=== PATIENT | male | born 1945 | race Caucasian/White ===

== ENCOUNTER 2025-01-04 14:36 | Inpatient (IN) | payer MEDICARE, BC ==
--- NOTE | 2025-01-04 15:29 | ED ---
Weakness HPI - General Chief complaint: Weakness Stated complaint: Weakness Time Seen by Provider: 01/04/25 14:49 Source: patient, EMS, RN notes reviewed Mode of arrival: EMS Limitations: no limitations - History of Present Illness Initial comments: This is a 79-year-old male with a history of recurrent kidney stones presenting to the emergency department via EMS for complaints of generalized weakness. Patient states over the past few weeks he has been feeling very fatigued decrease in appetite and experiencing cycles of diarrhea and constipation. He states that he has also been feeling mildly short of breath with abdominal distention. He denies barrett chest pain, fevers, chills, hematochezia, dysuria, hematuria, increased urinary frequency or urgency. He states that he will feel fatigued easily with activity. Patient has not followed with a primary doctor in many years. Lives at home by himself. - Related Data Allergies Allergy/AdvReac Type Severity Reaction Status Date / Time No Known Allergies Allergy Verified 01/04/25 14:50 Review of Systems ROS Statement: Those systems with pertinent positive or pertinent negative responses have been documented in the HPI. ROS Other: All systems not noted in ROS Statement are negative. Past Medical History Past Medical History: COPD, Renal Disease History of Any Multi-Drug Resistant Organisms: None Reported Past Surgical History: Back Surgery Past Psychological History: Depression Smoking Status: Former smoker Past Alcohol Use History: None Reported Past Drug Use History: None Reported General Exam Limitations: no limitations Respiratory exam: Present: normal lung sounds bilaterally. Absent: wheezes, rales, decreased breath sounds Cardiovascular Exam: Present: regular rate, normal rhythm, normal heart sounds. Absent: systolic murmur, diastolic murmur, rubs, gallop, clicks GI/Abdominal exam: Present: distended, normal bowel sounds. Absent: tenderness, guarding, rebound, rigid Extremities exam: Present: normal inspection, full ROM, normal capillary refill. Absent: tenderness, pedal edema, joint swelling, calf tenderness Back exam: Present: normal inspection Skin exam: Present: warm, dry, intact, normal color. Absent: rash Course Vital Signs 01/04/25 01/04/25 01/04/25 14:40 15:04 15:05 Temperature 97.8 F Pulse Rate 77 Pulse Rate [ 82 Mortar Carrier ] Respiratory 18 18 Rate Blood Pressure 88/56 O2 Sat by Pulse 93 L Oximetry Medical Decision Making - Medical Decision Making Was pt. sent in by a medical professional or institution (, LISA, HEMATOLOGY TECHNICIAN, urgent care, hospital, or [facility]...) When possible be specific @ -No Did you speak to anyone other than the patient for history (EMS, parent, family, police, friend...)? What history was obtained from this source @ -No Did you review nursing and triage notes (agree or disagree)? Why? @ -I reviewed and agree with nursing and triage notes Were old charts reviewed (outside hosp., previous admission, EMS record, old EKG, old radiological studies, urgent care reports/EKG's, [facility] records)? Report findings @ -No old charts were reviewed Differential Diagnosis (chest pain, altered mental status, abdominal pain women, abdominal pain men, vaginal bleeding, weakness, fever, dyspnea, syncope, headache, dizziness, GI bleed, back pain, seizure, CVA, palpatations, mental health, musculoskeletal)? @ Differential Weakness: Hypoglycemia, shock, sepsis, hyponatremia, anemia, infection, VT, ETOH, adverse medicine reaction, overdose, stroke, this is not meant to be an all-inclusive list. EKG interpreted by me (3pts min.). @ -Completed at 1539 sinus rhythm with a noted sinus arrhythmia, ventricular rate 73, W[place] interval 147, QRS 129, QT 428, QTc 453. X-rays interpreted by me (1pt min.). @ -Chest x-ray with no acute cardiopulmonary process or disease. CT interpreted by me (1pt min.). @ -CT angiography of the chest with IV contrast reveals no acute pulmonary embolism with ascites and suspected hepatic mass. U/S interpreted by me (1pt. min.). @ -None done What testing was considered but not performed or refused? (CT, X-rays, U/S, labs)? Why? @ -None What meds were considered but not given or refused? Why? @ -None Did you discuss the management of the patient with other professionals (professionals i.e. LISA Swift, HEMATOLOGY TECHNICIAN, lab, RT, psych nurse, social worker psychiatric, almond blancher, teacher, cra officer, classification case manager)? Give summary @ -Spoke with Dr. Deluca who agreed to admit the patient Was smoking cessation discussed for >3mins.? @ -No Was critical care preformed (if so, how long)? @ -No Were there social determinants of health that impacted care today? How? (Homelessness, low income, unemployed, alcoholism, drug addiction, transportation, low edu. Level, literacy, decrease access to med. care, snf, rehab)? @ -No Was there de-escalation of care discussed even if they declined (Discuss DNR or withdrawal of care, Hospice)? DNR status @ -No What co-morbidities impacted this encounter? (DM, HTN, Smoking, COPD, CAD, Cancer, CVA, ARF, Chemo, Hep., AIDS, mental health diagnosis, sleep apnea, morbid obesity)? @ -None Was patient admitted / discharged? Hospital course, mention meds given and route, prescriptions, significant lab abnormalities, going to OR and other pertinent info. @ -Admitted. 79-year-old male presenting via EMS for generalized weakness. Patient is hypotensive on arrival with a blood pressure of 88/56 and is requiring supplemental oxygen is that he does normally not wear at home. He is provided with fluids from EMS and is placed on 2 L nasal cannula. Patient has clear lung sounds bilaterally. There is noted abdominal distention examination with no tenderness and equal bowel sounds heard through all quadrants. Patient's chest x-ray is unremarkable. Laboratory testing reveals no acute process. Urinalysis reveals no signs of infection, viral testing is negative. With concern for hypoxemia patient is evaluated via CT imaging of the chest. CT reveals no evidence of PE however there is concern for ascites with suspected hepatic mass. Patient is continued on supplemental oxygen and will be admitted to internal medicine with further evaluation by pulmonology. Ultrasound ordered of the liver. Case discussed with my attending Dr. Patton. Patient will be admitted to Dr. Ortez. Undiagnosed new problem with uncertain prognosis? @ -No Drug Therapy requiring intensive monitoring for toxicity (Heparin, Nitro, Insulin, Cardizem)? @ -No Were any procedures done? @ -No Diagnosis/symptom? @ -Generalized weakness, hypoxemia, abdominal ascites, liver mass Acute, or Chronic, or Acute on Chronic? @ -Acute Uncomplicated (without systemic symptoms) or Complicated (systemic symptoms)? @ -Complicated Side effects of treatment? @ -No Exacerbation, Progression, or Severe Exacerbation? @ -No Poses a threat to life or bodily function? How? (Chest pain, USA, VT, pneumonia, PE, COPD, DKA, ARF, appy, cholecystitis, CVA, Diverticulitis, Homicidal, Suicidal, threat to staff... and all critical care pts) @ -No - Lab Data Result diagrams: 01/04/25 15:51 01/04/25 15:51 Lab Results 01/04/25 01/04/25 01/04/25 Range/Units 15:51 15:51 15:51 WBC 8.32 (4.50-10.00) 10*3/uL RBC 4.35 L (4.40-5.60) 10*6/uL Hgb 12.7 L (13.0-17.0) g/dL Hct 37.9 L (39.6-50.0) % MCV 87.1 (80.0-97.0) fL MCH 29.2 (27.0-32.0) pg MCHC 33.5 (32.0-37.0) g/dL Plt Count 270 (140-440) 10*3/uL MPV 8.4 L (9.5-12.2) fL Immature Gran % (Auto) 0.5 % Neutrophils % 85.6 % Lymphocytes % 6.0 % Monocytes % 7.7 % Eosinophils % 0.0 % Basophils % 0.2 % Immature Gran # 0.04 (0.00-0.04) 10*3/uL Neutrophils # 7.12 (1.80-7.70) 10*3/uL Lymphocytes # 0.50 L (0.90-5.00) 10*3/uL Monocytes # 0.64 (0.20-1.00) 10*3/uL Eosinophils # 0.00 L (0.04-0.35) 10*3/uL Basophils # 0.02 (0.00-0.10) 10*3/uL PT 12.7 H (10.0-12.5) sec INR 1.2 H (<1.2) APTT 25.8 (22.0-30.0) sec Sodium 138 (137-145) mmol/L Potassium 3.4 L (3.5-5.1) mmol/L Chloride 107 (98-107) mmol/L Carbon Dioxide 22 (22-30) mmol/L Anion Gap 9 mmol/L BUN 26 H (9-20) mg/dL Creatinine 0.70 (0.66-1.25) mg/dL Est GFR (CKD-EPI)AfAm >90 (>60 ml/min/1.73 sqM) Est GFR (CKD-EPI)NonAf >90 (>60 ml/min/1.73 sqM) Glucose 110 H (74-99) mg/dL Calcium 9.5 (8.4-10.2) mg/dL Magnesium 2.2 (1.6-2.3) mg/dL Total Bilirubin 1.5 H (0.2-1.3) mg/dL AST 23 (17-59) U/L ALT 17 (4-49) U/L Alkaline Phosphatase 153 H (38-126) U/L Troponin I (0.000-0.034) ng/mL NT-Pro-B Natriuret Pep 1750 pg/mL Total Protein 6.5 (6.3-8.2) g/dL Albumin 3.1 L (3.5-5.0) g/dL Lipase 38 (23-300) U/L Urine Color Urine Appearance (Clear) Urine pH (5.0-8.0) Ur Specific [place] (1.001-1.035) Urine Protein (Negative) Urine Glucose (UA) (Negative) Urine Ketones (Negative) Urine Blood (Negative) Urine Nitrite (Negative) Urine Bilirubin (Negative) Urine Urobilinogen (<2.0) mg/dL Ur Leukocyte Esterase (Negative) Urine RBC (0-5) /hpf Urine WBC (0-5) /hpf Ur Squamous Epith Cells (0-4) /hpf Hyaline Casts (0-2) /lpf Urine Mucus (None) /hpf Influenza Type A (PCR) (Not Detectd) Influenza Type B (PCR) (Not Detectd) RSV (PCR) (Not Detectd) SARS-CoV-2 (PCR) (Not Detectd) 01/04/25 01/04/25 01/04/25 Range/Units 15:51 15:51 16:30 WBC (4.50-10.00) 10*3/uL RBC (4.40-5.60) 10*6/uL Hgb (13.0-17.0) g/dL Hct (39.6-50.0) % MCV (80.0-97.0) fL MCH (27.0-32.0) pg MCHC (32.0-37.0) g/dL Plt Count (140-440) 10*3/uL MPV (9.5-12.2) fL Immature Gran % (Auto) % Neutrophils % % Lymphocytes % % Monocytes % % Eosinophils % % Basophils % % Immature Gran # (0.00-0.04) 10*3/uL Neutrophils # (1.80-7.70) 10*3/uL Lymphocytes # (0.90-5.00) 10*3/uL Monocytes # (0.20-1.00) 10*3/uL Eosinophils # (0.04-0.35) 10*3/uL Basophils # (0.00-0.10) 10*3/uL PT (10.0-12.5) sec INR (<1.2) APTT (22.0-30.0) sec Sodium (137-145) mmol/L Potassium (3.5-5.1) mmol/L Chloride (98-107) mmol/L Carbon Dioxide (22-30) mmol/L Anion Gap mmol/L BUN (9-20) mg/dL Creatinine (0.66-1.25) mg/dL Est GFR (CKD-EPI)AfAm (>60 ml/min/1.73 sqM) Est GFR (CKD-EPI)NonAf (>60 ml/min/1.73 sqM) Glucose (74-99) mg/dL Calcium (8.4-10.2) mg/dL Magnesium (1.6-2.3) mg/dL Total Bilirubin (0.2-1.3) mg/dL AST (17-59) U/L ALT (4-49) U/L Alkaline Phosphatase (38-126) U/L Troponin I <0.012 (0.000-0.034) ng/mL NT-Pro-B Natriuret Pep pg/mL Total Protein (6.3-8.2) g/dL Albumin (3.5-5.0) g/dL Lipase (23-300) U/L Urine Color Yellow Urine Appearance Clear (Clear) Urine pH 6.0 (5.0-8.0) Ur Specific [place] 1.031 (1.001-1.035) Urine Protein 1+ H (Negative) Urine Glucose (UA) Negative (Negative) Urine Ketones Negative (Negative) Urine Blood Negative (Negative) Urine Nitrite Negative (Negative) Urine Bilirubin 1+ H (Negative) Urine Urobilinogen 4.0 (<2.0) mg/dL Ur Leukocyte Esterase Negative (Negative) Urine RBC 1 (0-5) /hpf Urine WBC 2 (0-5) /hpf Ur Squamous Epith Cells <1 (0-4) /hpf Hyaline Casts 1 (0-2) /lpf Urine Mucus Many H (None) /hpf Influenza Type A (PCR) Not Detected (Not Detectd) Influenza Type B (PCR) Not Detected (Not Detectd) RSV (PCR) Not Detected (Not Detectd) SARS-CoV-2 (PCR) Not Detected (Not Detectd) Disposition Clinical Impression: Generalized weakness, Hypoxemia, Ascites, Liver lesion Disposition: ADMITTED IP TO THIS [facility] Condition: Stable Referrals: None,Stated [Primary Care Provider] - 1-2 days Decision to Admit Reason: Admit from EC Decision Date: 01/04/25 Decision Time: 18:01
[2025-01-04 16:01] LABS: Basophils # (A) 0.02 10*3/uL (0.00-0.10); Basophils % (A) 0.2 %; Eosinophils # (A) 0.00 10*3/uL (0.04-0.35); Eosinophils % (A) 0.0 %; HCT 37.9 % (39.6-50.0); HGB 12.7 g/dL (13.0-17.0); Lymphocytes # (A) 0.50 10*3/uL (0.90-5.00); Lymphocytes % (A) 6.0 %; MCH 29.2 pg (27.0-32.0); MCHC 33.5 g/dL (32.0-37.0); MCV 87.1 fL (80.0-97.0); Monocytes # (A) 0.64 10*3/uL (0.20-1.00); Monocytes % (A) 7.7 %; Neutrophils # (A) 7.12 10*3/uL (1.80-7.70); Neutrophils % (A) 85.6 %; Platelet Count 270 10*3/uL (140-440); RBC 4.35 10*6/uL (4.40-5.60); RDW 15.8 % (11.5-14.5); WBC 8.32 10*3/uL (4.50-10.00)
[2025-01-04 16:13] LABS: INR 1.2 (<1.2); Partial Thromboplastin Time 25.8 sec (22.0-30.0); Prothrombin Time 12.7 sec (10.0-12.5)
[2025-01-04 16:16] LABS: ALT 17 U/L (4-49); AST 23 U/L (17-59); African American GFR (CKD) >90 (>60 ml/min/1.73 sqM); Albumin 3.1 g/dL (3.5-5.0); Alkaline Phosphatase 153 U/L (38-126); Anion Gap 9 mmol/L; Blood Urea Nitrogen 26 mg/dL (9-20); Calcium 9.5 mg/dL (8.4-10.2); Carbon Dioxide 22 mmol/L (22-30); Chloride 107 mmol/L (98-107); Glucose 110 mg/dL (74-99); Lipase 38 U/L (23-300); Magnesium 2.2 mg/dL (1.6-2.3); Non-African American GFR(CKD) >90 (>60 ml/min/1.73 sqM); Potassium 3.4 mmol/L (3.5-5.1); Sodium 138 mmol/L (137-145); Total Protein 6.5 g/dL (6.3-8.2)
[2025-01-04 16:25] LABS: NT-Pro-B-Type Natriuretic Pept 1750 pg/mL
--- NOTE | 2025-01-04 16:27 | XR ---
EXAMINATION TYPE: XR chest 2V DATE OF EXAM: 01/04/2025 4:06 PM COMPARISON: None. CLINICAL INDICATION: Male, 79 years old with history of AURORA, weakness, TECHNIQUE: XR chest 2V view(s) obtained. FINDINGS: The heart size is normal. The pulmonary vasculature is normal. The lungs are clear. IMPRESSION: 1. No acute pulmonary process. [facility], Workstation: [facility], 01/04/2025 4:25 PM
[2025-01-04 16:37] LABS: RSV Not Detected (Not Detectd)
[2025-01-04 16:42] LABS: Bilirubin,Urine 1+ (Negative); Blood,Urine Negative (Negative); Color,Urine Yellow; Glucose,Urine (UA) Negative (Negative); Hyaline Casts,Urine 1 /lpf (0-2); Ketones,Urine Negative (Negative); Leukocyte Esterase,Urine Negative (Negative); Mucus,Urine Many /hpf; Nitrite,Urine Negative (Negative); PH, Urine 6.0 (5.0-8.0); Protein,Urine 1+ (Negative); RBC,Urine 1 /hpf (0-5); Specific Gravity,Urine 1.031 (1.001-1.035); Squamous Epithelial Cell,Urine <1 /hpf (0-4); Urobilinogen,Urine 4.0 mg/dL (<2.0); WBC,Urine 2 /hpf (0-5)
--- NOTE | 2025-01-04 17:42 | CT ---
EXAMINATION TYPE: CT chest angio for PE DATE OF EXAM: 01/04/2025 5:23 PM COMPARISON: No comparisons at this location. CLINICAL INDICATION: Male, 79 years old with history of hypoxemia, AURORA, difficulty breathing, TECHNIQUE: CT of the chest is performed on a spiral scan at 2 mm thick sections. Study is performed with intravenous contrast timed for evaluation for pulmonary embolism. This will limit additional po rtions of the evaluation. 10mm MIP images reconstructed by the technologist are reviewed on the comp uter in the coronal and sagittal planes. Contrast used:100 mL of Isovue 370 with IV Contrast, (none if empty) Oral contrast used: (none if empty) CT DLP: 287.8 mGycm, Automated exposure control for dose reduction was used. FINDINGS: No persistent filling defects are evident to suggest an acute pulmonary embolism. No mediastinal or hilar adenopathy enlarged by CT criteria is evident. The ascending aorta diameter at the level of the main pulmonary artery is 4.2 cm. The main pulmonary artery diameter at the bifurcation is 3.2 cm. Lung windows are clear. No significant coronary artery calcifications. Limited CT sections were through the upper abdomen. Ascites is present. There is an ill-defined hypo density within the posterior right lobe liver suspicious for underlying mass or anterior process. There is reflux into the inferior vena cava and portal system. IMPRESSION: 1. No acute pulmonary embolism. 2. No acute pulmonary process. 3. Ascending thoracic aortic aneurysm of 4.2 cm. 4. Ascites. 5. Suspected hepatic mass. Additional workup recommended. [facility], Workstation: [facility], 01/04/2025 5:39 PM
[2025-01-04] MEDS ORDERED: NALOXONE 0.4 MG/ML 1 ML VIAL IV PRN (17:59)
--- NOTE | 2025-01-04 21:07 | P.HPIM ---
History of Present Illness H&P Date: 01/04/25 Chief Complaint: weakness and SOB Patient is a 79-year-old male with a PMH of - Recurrent kidney stones - COPD -not on oxygen at home Comes into the ED today for fatigue and weakness with shortness of breath with daily activity for the past 2 weeks. Patient stated that since 12/23/2024 he noticed fatigue, and weakness when performing daily activities. He sometimes has shortness of breath that is worse with activity, or when he lays down. Denied improvement with positional change. Also stated that he sometimes has a distended abdomen, and with that he has shortness of breath as well especially when he lays down. Patient denied any past medical history other than the recurrent kidney stones. Patient denied having COPD. He stated that he quit smoking in 1994, and never smoked cigarettes after. Patient does not have a PCP. He only sees his field staff manager for the history of recurrent kidney stones. Patient endorsed taking only chlorthalidone and potassium chloride tablets. Denied chest pain, headache, fever chills, muscle weakness, numbness or ti ngling, abdominal pain, change in vision. Endorsed having shortness of breath, bilateral leg edema, distended abdomen. On his chest CTA, ascites was noted and there are was a suspected hepatic mass. Imaging: Chest x-ray 01/04 No acute pulmonary process Chest CTA 01/04 1. No acute pulmonary embolism 2. No acute pulmonary process 3. Ascending thoracic aortic aneurysm of 4.2 cm 4. Ascites 5. Suspected hepatic mass.additional workup recommended Liver ultrasound 01/04 Labs: WBC 8.32, Hgb 12.7, HCT 38, plt count 270 NA 138, K3.4, BUN 26, CR 0.7 AST, ALT are WNL, ALP 153 Vitals: T97.9F, HR 80, RR 20, BP 112/58, O2 sat 94% on RA ED documentation reviewed and case discussed with ED provider. [] Review of systems: Pertinent positives and negatives as discussed in HPI, a complete review of systems was performed and all other systems are negative. Physical examination: Vital signs reviewed General: non toxic, mild distress, appears at stated age, normal weight Derm: no unusual rashes/lesions, warm Eyes: EOMI, anicteric sclera, pupils equal round reactive to light ENT: Nose and ears atraumatic Neck: supple Mouth: no lip lesion, mucus membranes moist Cardiovascular: S1S2 reg, no murmur, positive dorsalis pedis pulse bilateral, bilateral leg edema +2 L, +1 R Lungs: shallow breathing with increased effort, no rhonchi, no rales, no accessory muscle use Abdominal: Mildly distended abdomen, nontender to palpation, no guarding Ext: muscle strength 5 out of 5 in all 4 extremities grossly, no gross muscle atrophy Neuro: no gross focal neuro deficits Psych: Alert, oriented to person, place, and time Assessment/Plan: #. Dyspnea rule out CHF - Dyspnea on exertion and laying down - Worsening bilateral leg edema - Denied following up with PCP for years - Troponin negative, proBNP 1750 - Ordered an echo for evaluation of wall function abnormality - Start Lasix 40 mg - check allergy first vs Bumax 1 mg - duoneb inhaler as needed - monitor O2 saturation #. Hx of COPD - unlikely an exacerbation - not on any medications - follow up outpatient for PFT #. Suspect for hepatic mass - Chest CTA positive for ascites, do not suspect for liver mass US revealed a liver mass with mass effect on the hepatic vein - Patient endorsed abdominal distention - Follow-up on liver ultrasound - AST and ALT are WNL, ALP 153 check AFP, hepatitis C ab, B S ab and Ag oncology consult no GI service available #. History of recurrent kidney stones - Pt follows up with his field staff manager for this medical issue - Takes chlorthalidone 12.5 mg daily at home - Hold chlorthalidone DVT prophylaxis: Lovenox 40 mg The patient is admitted with an anticipated less than 2 midnight stay for evaluation of weakness and shortness of breath CODE STATUS: full code Discussed with: Dr. Mclaughlin Anticipated discharge place: Home Darline Amado MD PGY-1 IM Dictation was produced using [employer] dictation software. please excuse any grammatical, word or spelling errors. I have seen and evaluated the patient today. I Discussed the case with the resident and agree with the resident's findings I edited the assessment and plan as necessary as documented in the resident's note. Past Medical History Past Medical History: COPD, Renal Disease History of Any Multi-Drug Resistant Organisms: None Reported Past Surgical History: Back Surgery Past Psychological History: Depression Smoking Status: Former smoker Past Alcohol Use History: None Reported Past Drug Use History: None Reported Medications and Allergies Home Medications Medication Instructions Recorded Confirmed Type Chlorthalidone [Hygroton] 12.5 mg PO DAILY 01/04/25 01/04/25 History Glucosa Sellers 2Kcl/Chondroitin Sellers 1 cap PO DAILY 01/04/25 01/04/25 History [Glucosamine-Chondroitin Cap] Potassium Chloride ER [K-Dur 20] 20 meq PO DAILY 01/04/25 01/04/25 History Vit C/E/Zn/Coppr/Lutein/Zeaxan 1 cap PO DAILY 01/04/25 01/04/25 History [Preservision Areds 2 Softgel] Allergies Allergy/AdvReac Type Severity Reaction Status Date / Time No Known Allergies Allergy Verified 01/04/25 18:21 Physical Exam Vitals: Vital Signs Temp Pulse Pulse Resp BP Pulse Ox 01/04/25 19:31 93 L 01/04/25 19:13 97.9 F 80 20 112/58 95 01/04/25 15:05 18 01/04/25 15:04 82 01/04/25 14:40 97.8 F 77 18 88/56 93 L Intake and Output 01/04/25 01/04/25 01/04/25 06:59 14:59 22:59 Other: Weight 83.915 kg Results CBC & Chem 7: 01/04/25 15:51 01/04/25 15:51 Labs: Abnormal Lab Results - Last 24 Hours (Table) 01/04/25 01/04/25 01/04/25 Range/Units 15:51 15:51 15:51 RBC 4.35 L (4.40-5.60) 10*6/uL Hgb 12.7 L (13.0-17.0) g/dL Hct 37.9 L (39.6-50.0) % MPV 8.4 L (9.5-12.2) fL Lymphocytes # 0.50 L (0.90-5.00) 10*3/uL Eosinophils # 0.00 L (0.04-0.35) 10*3/uL PT 12.7 H (10.0-12.5) sec INR 1.2 H (<1.2) Potassium 3.4 L (3.5-5.1) mmol/L BUN 26 H (9-20) mg/dL Glucose 110 H (74-99) mg/dL Total Bilirubin 1.5 H (0.2-1.3) mg/dL Alkaline Phosphatase 153 H (38-126) U/L Albumin 3.1 L (3.5-5.0) g/dL Urine Protein (Negative) Urine Bilirubin (Negative) Urine Mucus (None) /hpf 01/04/25 Range/Units 16:30 RBC (4.40-5.60) 10*6/uL Hgb (13.0-17.0) g/dL Hct (39.6-50.0) % MPV (9.5-12.2) fL Lymphocytes # (0.90-5.00) 10*3/uL Eosinophils # (0.04-0.35) 10*3/uL PT (10.0-12.5) sec INR (<1.2) Potassium (3.5-5.1) mmol/L BUN (9-20) mg/dL Glucose (74-99) mg/dL Total Bilirubin (0.2-1.3) mg/dL Alkaline Phosphatase (38-126) U/L Albumin (3.5-5.0) g/dL Urine Protein 1+ H (Negative) Urine Bilirubin 1+ H (Negative) Urine Mucus Many H (None) /hpf
--- NOTE | 2025-01-04 21:47 | US ---
EXAMINATION TYPE: US liver DATE OF EXAM: 01/04/2025 COMPARISON: CT chest today CLINICAL INDICATION: Male, 79 years old with history of hepatic mass, ascites; hepatic mass seen on C T, ascites TECHNIQUE: Grayscale and color Doppler imaging of the right upper quadrant was performed. FINDINGS: EXAM MEASUREMENTS: Liver Length: 17.2 cm Gallbladder Wall: 0.3 cm CBD: 0.6 cm Right Kidney: 12.3 x 5.5 x 6.0 cm SOLUTIONS OPERATOR NOTES:slightly limited Pancreas: Obscured by bowel gas Liver: multiple mass-like areas seen within the liver. The largest is complex in the posterior right lobe measuring 9.7 x 10.8 x 11.7cm with vascularity seen within and appears to be pushing into the r ight hepatic vein Gallbladder: wnl Evidence for sonographic Langston's sign: no CBD: upper limits of normal Right Kidney: slightly large in size. there is a 1.6 x 1.6 x 2.2cm anechoic area seen within mid to inferior pole ascites seen within the abdomen IMPRESSION: 1. Clinical consideration for metastasis within the liver. 2. Renal cysts. 3. Ascites [facility], Workstation: [facility], 01/04/2025 9:45 PM
[2025-01-04] MEDS ORDERED: IPRATROPIUM-ALBUTEROL 3 ML NEB INHALATION PRN (22:35)
--- NOTE | 2025-01-05 02:01 | P.CNPUL ---
History of Present Illness Consult date: 01/05/25 Requesting physician: Digna Young Reason for consult: hypoxemia Chief complaint: Abdominal fullness, exertional dyspnea History of present illness: Patient is a 79-year-old male with past medical history significant for recurrent kidney stones, former tobacco smoker, previous heavy alcohol use, and is hard of hearing. He does not currently follow with primary care provider. Presented to the emergency department yesterday afternoon complaining of increased abdominal fullness and exertional dyspnea. Workup in the emergency department clued and a chest CT angiogram which did not show any acute pulmonary embolism or acute pulmonary process. Ascending thoracic aortic aneurysm measuring 4.2 cm. Abdominal ascites. Suspected hepatic mass within the posterior right lobe liver. Follow-u abdominal ultrasound showing multiple masslike areas seen within the liver. Largest is complex in the posterior right lobe measuring 9.7 x 10.8 x 11.7 cm with vascularity seen within it appears to be pushing into the right hepatic vein. Patient currently being seen on observation unit. He is on room air. States he came to the emergency department because his abdomen has been more distended and taut over the last 6 months. This is associated exertional dyspnea over the same timeframe. He has been losing an uncertain amount of weight. Early statiety. Denies nausea, vomiting, hematemesis. Intermittent periods of diarrhea and constipation without melena or hematochezia. No abdominal pain. Former heavy alcohol use. Denies history of hepatitis. Denies history of liver cirrhosis. Denies family history of liver cancer. Previously 1 pack/day smoker, however, quit in 02 12. Denies history of COPD. Denies inhaler use. Denies infectious-like symptoms. Denies sick contacts. Denies cough. Denies fevers or chills. Viral 4 Plex negative for influenza A/B, RSV, COVID. Denies chest pain. He has noted some lower extremity edema bilaterally. Review of Systems REVIEW OF SYSTEMS: CONSTITUTIONAL: Admits uncertain amount of weight loss, unintentional EYES: Denies change in vision. EARS, NOSE, MOUTH, THROAT: Denies headaches, denies sore throat. CARDIOVASCULAR: Denies chest pain, palpitations or syncopal episodes. Admits lower extremity edema bilaterally RESPIRATORY: See HPI GASTROINTESTINAL: See HPI GENITOURINARY: Denies hematuria, denies infections. MUSKULOSKELETAL: Denies pain, denies swelling. INTEGUMENTARY: Denies rash, denies eczema. NEUROLOGICAL: Denies recent memory loss, no recent seizure activity. PSYCHIATRIC: Denies anxiety, denies depression. HEMATOLOGIC/LYMPHATIC: Denies anemia, denies enlarged lymph node Past Medical History Past Medical History: COPD, Renal Disease History of Any Multi-Drug Resistant Organisms: None Reported Past Surgical History: Back Surgery Past Anesthesia/Blood Transfusion Reactions: No Reported Reaction Past Psychological History: Depression Smoking Status: Former smoker Past Alcohol Use History: None Reported Past Drug Use History: None Reported Medications and Allergies Home Medications Medication Instructions Recorded Confirmed Type Chlorthalidone [Hygroton] 12.5 mg PO DAILY 01/04/25 01/04/25 History Glucosa Sellers 2Kcl/Chondroitin Sellers 1 cap PO DAILY 01/04/25 01/04/25 History [Glucosamine-Chondroitin Cap] Potassium Chloride ER [K-Dur 20] 20 meq PO DAILY 01/04/25 01/04/25 History Vit C/E/Zn/Coppr/Lutein/Zeaxan 1 cap PO DAILY 01/04/25 01/04/25 History [Preservision Areds 2 Softgel] Allergies Allergy/AdvReac Type Severity Reaction Status Date / Time No Known Allergies Allergy Verified 01/04/25 18:21 Physical Exam Vitals: Vital Signs Temp Pulse Pulse Resp BP BP Pulse Ox 01/04/25 21:18 98.2 F 113 H 18 95/63 94 L 01/04/25 19:50 98.0 F 90 99/61 93 L 01/04/25 19:31 93 L 01/04/25 19:13 97.9 F 80 20 112/58 95 01/04/25 15:05 18 01/04/25 15:04 82 01/04/25 14:40 97.8 F 77 18 88/56 93 L Intake and Output 01/04/25 01/04/25 01/05/25 14:59 22:59 06:59 Other: Weight 83.915 kg 83.915 kg GENERAL EXAM: Alert, 79-year-old male, extremely hard of hearing, comfortable in no apparent distress. HEAD: Normocephalic and atraumatic EYES: Normal reaction of pupils, equal size. NOSE: Clear with pink turbinates. THROAT: No erythema or exudates. NECK: No masses, no JVD. CHEST: No chest wall deformity. LUNGS: Equal air entry with no crackles, wheeze, rhonchi or dullness. On room air. No conversational dyspnea or accessory muscle use.. CVS: S1 and S2 normal with no audible murmur, regular rhythm. No extra heart asilaja nds ABDOMEN abdominal distention, active bowel sounds, no guarding or rigidity, with hepatomegaly. SPINE: No scoliosis or deformity SKIN: No rashes CENTRAL NERVOUS SYSTEM: No focal deficits, tone is normal in all 4 extremities. EXTREMITIES: There 1-2+ bilateral lower extremity edema. No clubbing, or cyanosis. Peripheral pulses are intact. Results - Laboratory Findings CBC and BMP: 01/04/25 15:51 01/04/25 15:51 PT/INR, D-dimer PT 12.7 sec (10.0-12.5) H 01/04/25 15:51 INR 1.2 (<1.2) H 01/04/25 15:51 Abnormal lab findings: Abnormal Labs 01/04/25 01/04/25 01/04/25 15:51 15:51 15:51 RBC 4.35 L Hgb 12.7 L Hct 37.9 L MPV 8.4 L Lymphocytes # 0.50 L Eosinophils # 0.00 L PT 12.7 H INR 1.2 H Potassium 3.4 L BUN 26 H Glucose 110 H Total Bilirubin 1.5 H Alkaline Phosphatase 153 H Albumin 3.1 L Urine Protein Urine Bilirubin Urine Mucus 01/04/25 16:30 RBC Hgb Hct MPV Lymphocytes # Eosinophils # PT INR Potassium BUN Glucose Total Bilirubin Alkaline Phosphatase Albumin Urine Protein 1+ H Urine Bilirubin 1+ H Urine Mucus Many H - Diagnostic Findings Chest x-ray: image reviewed CT scan - chest: image reviewed Assessment and Plan Assessment: Hepatic masses, largest is complex in the posterior right lobe measuring 9.7 x 10.8 x 11.7 cm, concerning for malignancy Abdominal ascites Abdominal distention, secondary to above Exertional dyspnea, suspect secondary to above Bilateral lower extremity edema Thoracic aorta measuring 4.2 cm Former tobacco smoker, quit in 1995, with approximately 30-40 pack years history History of heavy alcohol use Hard of hearing History of recurrent nephrolithiasis Plan: Patient's medications, labs, imaging reviewed Chest CT angiogram did not show any acute pulmonary embolism or acute pulmonary process. Ascending thoracic aortic aneurysm measuring 4.2 cm. Abdominal ascites. Suspected hepatic mass within the posterior right lobe liver. Follow- u abdominal ultrasound showing multiple masslike areas seen within the liver. Largest is complex in the posterior right lobe measuring 9.7 x 10.8 x 11.7 cm with vascularity seen within it appears to be pushing into the right hepatic vein. Recommend workup for malignancy Hepatitis panel pending No current alcohol use Currently on room air No evidence of COPD exacerbation or acute pulmonary process Echocardiogram is pending I have personally seen and examined the patient, performed the documentation and the assessment and plan as written. Number of minutes spent on the visit:20 Time with Patient: Greater than 30
[2025-01-05 07:00] LABS: Basophils # (A) 0.01 10*3/uL (0.00-0.10); Basophils % (A) 0.2 %; Eosinophils # (A) 0.01 10*3/uL (0.04-0.35); Eosinophils % (A) 0.2 %; HCT 33.5 % (39.6-50.0); HGB 11.3 g/dL (13.0-17.0); Lymphocytes # (A) 0.53 10*3/uL (0.90-5.00); Lymphocytes % (A) 8.0 %; MCH 29.6 pg (27.0-32.0); MCHC 33.7 g/dL (32.0-37.0); MCV 87.7 fL (80.0-97.0); Monocytes # (A) 0.59 10*3/uL (0.20-1.00); Monocytes % (A) 8.9 %; Neutrophils # (A) 5.44 10*3/uL (1.80-7.70); Neutrophils % (A) 82.4 %; Platelet Count 228 10*3/uL (140-440); RBC 3.82 10*6/uL (4.40-5.60); RDW 16.0 % (11.5-14.5); WBC 6.60 10*3/uL (4.50-10.00)
[2025-01-05 07:11] LABS: ALT 14 U/L (4-49); AST 19 U/L (17-59); African American GFR (CKD) >90 (>60 ml/min/1.73 sqM); Albumin 2.5 g/dL (3.5-5.0); Alkaline Phosphatase 132 U/L (38-126); Anion Gap 6 mmol/L; Blood Urea Nitrogen 23 mg/dL (9-20); Calcium 9.2 mg/dL (8.4-10.2); Carbon Dioxide 23 mmol/L (22-30); Chloride 109 mmol/L (98-107); Glucose 93 mg/dL (74-99); Non-African American GFR(CKD) 87 (>60 ml/min/1.73 sqM); Potassium 3.5 mmol/L (3.5-5.1); Sodium 138 mmol/L (137-145); Total Protein 5.7 g/dL (6.3-8.2)
[2025-01-05] MEDS: FUROSEMIDE 10 MG/ML 4 ML VIAL IV STA (09:56)
--- NOTE | 2025-01-05 10:02 | CT ---
EXAMINATION TYPE: CT brain wo con DATE OF EXAM: 01/05/2025 9:29 AM COMPARISON: None. CLINICAL INDICATION: Male, 79 years old with history of Dizzy, light headed, liver mass r/o metastasi s TECHNIQUE: Examination was done in axial plane without intravenous contrast. Coronal and sagittal r econstructions performed. CT DLP: 1258.4 mGycm, Automated exposure control for dose reduction was used. FINDINGS: There is no evidence of acute intracranial hemorrhage, acute ischemic changes, mass, mass-effect, or extra-axial fluid collection. There is no effacement of cerebral sulci or basal subarachnoid cister ns. Mild to moderate generalized supratentorial volume loss. Secondary mild prominence to the ventricular system. Mild to moderate patchy white matter hypodensities in both cerebral hemispheres. Benign basal ganglionic calcifications. Suspect a 1.1 cm prominent perivascular space right basal mary glia. Some atherosclerotic calcifications in the carotid siphons. There is no midline shift. Suresh-white matter distinction is preserved. Numerous punctate calcifications bilateral palatine tonsil suggests sequela of prior infection. Mild mucosal thickening maxillary sinuses. Leftward nasal septal deviation. Mastoid air cells are wel l pneumatized. Orbits and globes are intact. IMPRESSION: Mild to moderate generalized atrophy and mild to moderate burden of chronic small vessel ischemic dis ease. No acute intracranial abnormality seen. No obvious brain metastases by noncontrast CT. If there is adequate clinical suspicion, recommend MRI for more sensitive evaluation. [facility], , 01/05/2025 9:59 AM
[2025-01-05] MEDS: POTASSIUM CHLORIDE ER 20 MEQ TAB.ER PO SCH (10:30)
[2025-01-05 11:46] LABS: Hepatitis B Surface Antigen Nonreactive (Nonreactive); Hepatitis C IgG Antibody Nonreactive (Nonreactive)
[2025-01-05 11:50] LABS: Alpha Fetoprotein, Tumor Mkr <3.00 ng/mL (0.00-7.90)
[2025-01-05 14:57] LABS: Hepatitis B Surface AB- Quant 3.5 mIU/mL
[2025-01-05 15:00] VITALS: BMI 26.5
[2025-01-05] MEDS: IOPAMIDOL CONTRAST (ORAL USE) VIAL PO PRN (16:06)
--- NOTE | 2025-01-05 18:02 | P.PN ---
Subjective Progress Note Date: 01/05/25 Patient was seen and examined. He reports feeling significantly weak over the past 6 months now unable to do his ADL and IADLs. He lives alone. CBC, CMP significant for RBC 3.82, Hg 11.3, Hct 33.5, Cl 109, BUN 23, alk phos 132, alb 2.5. AFP < 3. Hep B + C neg. Liver US shows metastasis within the liver, renal cysts and ascites. Brain CT neg for metastatic lesions. Discussed with Shreyas FLORES, hopeful plans for liver biopsy or paracentesis. General: non toxic, no distress, appears at stated age Derm: warm, dry Head: atraumatic, normocephalic, symmetric Eyes: EOMI, no lid lag, anicteric sclera Mouth: no lip lesion, mucus membranes moist Cardiovascular: S1S2 reg, no murmur Lungs: Decreased BS bilateral, no rhonchi, no rales , no accessory muscle use Abd: Soft. Slightly distended. Non tender to palpation Ext: no gross muscle atrophy, no edema, no contractures Neuro: no focal neuro deficits Psych: Alert and oriented. Based on my assessment of this patient, this patient meets a high complexity le nella of care. Liver lesions suspicion for metastatic cancer: Oncology on board. CT AP + Liver MRI pending. Patient deciding on biopsy. IR consulted as well. Dyspnea rule out CHF: BNP 1750. 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 Echo is pending. Normocytic anemia: Stable no signs of active bleeding. Monitor. Protein calorie malnutrition, severe: Unable to take care of ADL or IADLs. PT an d OT consult. Fall precautions. Need for possible placement. Resolved: Hyperbiliruibinemia CODE STATUS: FULL CODE. DVT Prophylaxis: GI Prophylaxis: Designated medical POA if patient is not able to make medical decisions for themselves: I have reviewed the following internet sales consultant notes: Pulmonary I have reviewed the results of the following tests: CBC, CMP, Hep B+ C, Liver US, Brain CT. I have ordered the following tests: I have discussed the care of this patient with the following independent historian: BRIAN. I have independently interpreted the following test below: I have discussed the management of this patient with the following physician: Shreyas FLORES. Objective - Vital Signs Vital signs: Vital Signs Temp 98.2 F 01/05/25 13:47 Pulse 63 01/05/25 13:47 Resp 15 01/05/25 13:47 BP 102/63 01/05/25 13:47 Pulse Ox 92 L 01/05/25 13:47 FiO2 Intake & Output 01/04/25 01/05/25 01/05/25 18:59 06:59 18:59 Intake Total 250 Balance 250 Weight 83.915 kg 83.915 kg 83.915 kg Intake: Oral 250 Other: Voiding Method Toilet # Voids 1 - Labs CBC & Chem 7: 01/05/25 06:48 01/05/25 06:48 Labs: Abnormal Lab Results - Last 24 Hours (Table) 01/05/25 01/05/25 Range/Units 06:48 06:48 RBC 3.82 L (4.40-5.60) 10*6/uL Hgb 11.3 L (13.0-17.0) g/dL Hct 33.5 L (39.6-50.0) % MPV 8.2 L (9.5-12.2) fL Lymphocytes # 0.53 L (0.90-5.00) 10*3/uL Eosinophils # 0.01 L (0.04-0.35) 10*3/uL Chloride 109 H (98-107) mmol/L BUN 23 H (9-20) mg/dL Alkaline Phosphatase 132 H (38-126) U/L Total Protein 5.7 L (6.3-8.2) g/dL Albumin 2.5 L (3.5-5.0) g/dL
--- NOTE | 2025-01-05 18:26 | CT ---
EXAMINATION TYPE: CT abdomen pelvis w con CT DLP: 1135.7 mGycm, Automated exposure control for dose reduction was used. DATE OF EXAM: 01/05/2025 5:59 PM COMPARISON: Ultrasound liver 01/04/2025, CTA chest 01/04/2025 CLINICAL INDICATION:Male, 79 years old with history of liver mass, staging; abdominal pain, liver mas s TECHNIQUE: Standard CT of the abdomen and pelvis following the administration of 100 cc of Isovue 3 00 IV contrast material and oral contrast. Coronal and sagittal reformats were performed. FINDINGS: LOWER CHEST: Trace bilateral pleural effusions. Severe aortic valvular calcifications. Mild intraveno us calcifications. Prominent heart size. No pericardial effusion. No focal consolidation. ABDOMEN LIVER: Noncirrhotic morphology. Multiple homogeneously enhancing bilobar hepatic lesions identified. Largest within the left lateral hepatic lobe measures up to 2.1 cm (series 201, image 19). Larger pos terior right hepatic lobe lesion measuring up to 9.0 cm (series 201, image 37). Additional heterogeno us large enhancing lesion within the posterior right hepatic lobe measuring grossly up to 9.8 cm. Roberto tral heterogenous hypodense region within this lesion. There is washout of these lesions on delayed i maging. GALLBLADDER AND BILE DUCTS: Unremarkable. PANCREAS: Unremarkable. SPLEEN: Unremarkable. ADRENAL GLANDS: Unremarkable. KIDNEYS AND URETERS: No evidence of hydronephrosis or renal calculus. The kidneys enhance symmetrical ly. Few bilateral renal simple-appearing cysts with largest on the right measuring up to 2.1 cm. No f ollow-up is recommended. Contrast is demonstrated within both collecting systems on the delayed phase . PELVIS BLADDER: Underdistended and contrast-filled from prior CTA. No filling defect identified. REPRODUCTIVE: Unremarkable. ABDOMEN & PELVIS STOMACH AND BOWEL: Small periampullary duodenal diverticulum. Enteric contrast reaches the distal sma ll bowel.Moderate amount of stool present within the distal colon. Diverticulosis of the descending c olon without evidence for acute diverticulitis. No evidence of bowel obstruction. PERITONEUM: No evidence of pneumoperitoneum. Moderate to large volume ascites. Right lower quadrant c entral mesenteric enhancing soft tissue measuring 3.7 x 2.3 cm with coarse calcification (series 20, image 66). There is a redemonstration of left mid abdomen mesentery curvilinear enhancing soft tissue measuring grossly 13.3 x 2.0 cm (series 201, image 50). Suspected metastatic implants within the rec tovesicular space with example including a 1.5 cm nodule (series 201, 78). VASCULATURE: Mild to moderate atherosclerotic calcifications are present throughout the abdominal aor ta and its branches. No evidence of aortic aneurysm. MUSCULOSKELETAL: No acute osseous abnormalities. No aggressive osseous lesion. Multilevel anterior os teophytosis of the thoracolumbar spine. Grade I anterolisthesis at L4 on L5 with bilateral pars defec ts. LYMPH NODES: No gross evidence for lymphadenopathy. SOFT TISSUE/ABDOMINAL WALL: Diffuse anasarca. IMPRESSION: 1. Multiple bilobar enhancing lesions with large lesions within the right hepatic lobe. Additionally there are 2 distinct heterogeneous enhancing soft tissue lesions within the mesentery. Additional aldrich spected metastatic implants within the pelvis. Findings are highly concerning for malignancy with met astasis until proven otherwise. Further workup is recommended. Appearance could be seen with neuroend ocrine tumor metastasis versus other etiologies such as colon malignancy. 2. Moderate to large volume ascites with diffuse anasarca. 3. Colonic diverticulosis without definitive evidence for acute diverticulitis. 4. Trace bilateral pleural effusions. [facility], , 01/05/2025 6:23 PM
--- NOTE | 2025-01-06 07:01 | P.CONS ---
History of Present Illness - Reason for Consult Consult date: 01/05/25 liver mass Requesting physician: Juan Mclaughlin - Chief Complaint weakness - History of Present Illness Patient is a 79-year-old male who presented to the ED emergency room for progressing weakness and fatigue. Consult was placed due to noted liver mass. Patient reports he has been experiencing abdominal pain and bowel changes over the last 6 months. Also reports 40 to 50 pound weight loss over the last 1 year. States last colonoscopy was in 2019 or 2020. He has never underwent EGD in the past. On admit CTA chest was negative for PE no acute pulmonary process es. Ascites with suspected hepatic mass. Liver ultrasound revealed multiple masslike area seen within the liver, largest is complex in the posterior right lobe measuring 9.7 x 10.8 x 11.7 cm with vascularity seen within and ascites. Bilirubin 1.5, AST 23, ALT 17, ALP 153, lipase 38. WBC 6.6, hemoglobin 11.3, platelets 228,000. Review of Systems 10 point ROS is negative except as stated in the HPI Past Medical History Past Medical History: COPD, Renal Disease History of Any Multi-Drug Resistant Organisms: None Reported Past Surgical History: Back Surgery Past Anesthesia/Blood Transfusion Reactions: No Reported Reaction Past Psychological History: Depression Smoking Status: Former smoker Past Alcohol Use History: None Reported Past Drug Use History: None Reported Medications and Allergies Home Medications Medication Instructions Recorded Confirmed Type Chlorthalidone [Hygroton] 12.5 mg PO DAILY 01/04/25 01/04/25 History Glucosa Sellers 2Kcl/Chondroitin Sellers 1 cap PO DAILY 01/04/25 01/04/25 History [Glucosamine-Chondroitin Cap] Potassium Chloride ER [K-Dur 20] 20 meq PO DAILY 01/04/25 01/04/25 History Vit C/E/Zn/Coppr/Lutein/Zeaxan 1 cap PO DAILY 01/04/25 01/04/25 History [Preservision Areds 2 Softgel] Allergies Allergy/AdvReac Type Severity Reaction Status Date / Time No Known Allergies Allergy Verified 01/04/25 18:21 Physical Exam Vitals: Vital Signs Temp Pulse Pulse Resp BP BP Pulse Ox 01/05/25 07:00 97.7 F 84 12 118/62 94 L 01/05/25 02:00 97.9 F 64 93/61 94 L 01/04/25 21:18 98.2 F 113 H 18 95/63 94 L 01/04/25 20:00 98.0 F 90 99/61 93 L 01/04/25 19:50 98.0 F 90 99/61 93 L 01/04/25 19:31 93 L 01/04/25 19:13 97.9 F 80 20 112/58 95 01/04/25 15:05 18 01/04/25 15:04 82 01/04/25 14:40 97.8 F 77 18 88/56 93 L Intake and Output 01/04/25 01/05/25 01/05/25 22:59 06:59 14:59 Intake Total 250 Balance 250 Intake: Oral 250 Other: Voiding Method Toilet # Voids 1 Weight 83.915 kg - Constitutional General appearance: average body habitus - EENT ENT: hearing grossly normal - Respiratory Respiratory: bilateral: CTA - Cardiovascular Rhythm: regular - Gastrointestinal General gastrointestinal: distended, tenderness Localized gastrointestinal: tender: RUQ, epigastric periumbilical - Integumentary Integumentary: no cyanotic, no jaundiced - Psychiatric Psychiatric: A&O x's 3 Results CBC & Chem 7: 01/05/25 06:48 01/05/25 06:48 Labs: Abnormal Lab Results - Last 24 Hours (Table) 01/04/25 01/04/25 01/04/25 Range/Units 15:51 15:51 15:51 RBC 4.35 L (4.40-5.60) 10*6/uL Hgb 12.7 L (13.0-17.0) g/dL Hct 37.9 L (39.6-50.0) % MPV 8.4 L (9.5-12.2) fL Lymphocytes # 0.50 L (0.90-5.00) 10*3/uL Eosinophils # 0.00 L (0.04-0.35) 10*3/uL PT 12.7 H (10.0-12.5) sec INR 1.2 H (<1.2) Potassium 3.4 L (3.5-5.1) mmol/L Chloride (98-107) mmol/L BUN 26 H (9-20) mg/dL Glucose 110 H (74-99) mg/dL Total Bilirubin 1.5 H (0.2-1.3) mg/dL Alkaline Phosphatase 153 H (38-126) U/L Total Protein (6.3-8.2) g/dL Albumin 3.1 L (3.5-5.0) g/dL Urine Protein (Negative) Urine Bilirubin (Negative) Urine Mucus (None) /hpf 01/04/25 01/05/25 01/05/25 Range/Units 16:30 06:48 06:48 RBC 3.82 L (4.40-5.60) 10*6/uL Hgb 11.3 L (13.0-17.0) g/dL Hct 33.5 L (39.6-50.0) % MPV 8.2 L (9.5-12.2) fL Lymphocytes # 0.53 L (0.90-5.00) 10*3/uL Eosinophils # 0.01 L (0.04-0.35) 10*3/uL PT (10.0-12.5) sec INR (<1.2) Potassium (3.5-5.1) mmol/L Chloride 109 H (98-107) mmol/L BUN 23 H (9-20) mg/dL Glucose (74-99) mg/dL Total Bilirubin (0.2-1.3) mg/dL Alkaline Phosphatase 132 H (38-126) U/L Total Protein 5.7 L (6.3-8.2) g/dL Albumin 2.5 L (3.5-5.0) g/dL Urine Protein 1+ H (Negative) Urine Bilirubin 1+ H (Negative) Urine Mucus Many H (None) /hpf CT scan - chest: report reviewed Venous US: report reviewed Assessment and Plan (1) Ascites Current Visit: Yes Status: Acute Code(s): R18.8 - OTHER ASCITES SNOMED Code(s): 642058698 (2) Generalized weakness Current Visit: Yes Status: Acute Code(s): R53.1 - WEAKNESS SNOMED Code(s): 13130335 (3) Liver lesion Current Visit: Yes Status: Acute Code(s): K76.9 - LIVER DISEASE, UNSPECIFIED SNOMED Code(s): 234212762 Plan: Liver mass: Presented with progressing weakness and fatigue. Reports he has been experiencing abdominal pain and bowel changes over the last 6 months, with 40-50 pound weight loss over the last 1 year -On admit CTA chest was negative for PE no acute pulmonary processes. Ascites with suspected hepatic mass. -Liver ultrasound revealed multiple masslike areas seen within the liver, largest is complex in the posterior right lobe measuring 9.7 x 10.8 x 11.7 cm with vascularity seen within, and ascites. -Bilirubin 1.5, AST 23, ALT 17, ALP 153, lipase 38. -CT AP w/ contrast ordered to further evaluate -IR consult placed for biopsy. Spoke with IR dept, radiologist requesting MRI liver prior to biopsy, scan has been ordered Findings and concerns for malignancy was discussed with patient. He was agreeable to proceed with further workup. All questions and concerns were addressed Doctor attests: I performed a history and physical examination of this patient, developed impression and plan of care. Discussed with dictator. I agree with dictators note, documented as a scribe.
--- NOTE | 2025-01-06 11:28 | P.PN ---
Subjective Progress Note Date: 01/06/25 Patient is a 79-year-old male with past medical history significant for recurrent kidney stones, former tobacco smoker, previous heavy alcohol use, and is hard of hearing. He does not currently follow with primary care provider. Presented to the emergency department yesterday afternoon complaining of in creased abdominal fullness and exertional dyspnea. Workup in the emergency department clued and a chest CT angiogram which did not show any acute pulmonary embolism or acute pulmonary process. Ascending thoracic aortic aneurysm measuring 4.2 cm. Abdominal ascites. Suspected hepatic mass within the posterior right lobe liver. Follow-u abdominal ultrasound showing multiple masslike areas seen within the liver. Largest is complex in the posterior right lobe measuring 9.7 x 10.8 x 11.7 cm with vascularity seen within it appears to be pushing into the right hepatic vein. Patient currently being seen on observation unit. He is on room air. States he came to the emergency department because his abdomen has been more distended and taut over the last 6 months. This is associated exertional dyspnea over the same timeframe. He has been losing an uncertain amount of weight. Early statiety. Denies nausea, vomiting, hematemesis. Intermittent periods of diarrhea and constipation without melena or hematochezia. No abdominal pain. Former heavy alcohol use. Denies history of hepatitis. Denies history of liver cirrhosis. Denies family history of liver cancer. Previously 1 pack/day smoker, however, quit in 02 12. Denies history of COPD. Denies inhaler use. Denies infectious-like symptoms. Denies sick contacts. Denies cough. Denies fevers or chills. Viral 4 Plex negative for influenza A/B, RSV, COVID. Denies chest pain. He has noted some lower extremity edema bilaterally. The patient was seen today January 06, 2025 in follow-up on the observation unit. He is currently resting in bed. Awake and alert in no acute distress. Maintaining good O2 saturations in the 90s on room air oxygen. Has been afebrile. Hemodynamically stable. CT scan of the brain revealed no obvious brain metastasis. No acute intracranial abnormalities. CT scan of the abdomen and pelvis revealed multiple by lobar enhancing lesions with large lesions within the right hepatic lobe. Additionally there are 2 distinct heterogenous enhancing soft tissue lesions within the mesentery. Additional suspected metastatic implants within the pelvis. Findings are highly concerning for malignancy with metastasis. Moderate to large volume ascites with diffuse anasarca. Trace bilateral pleural effusions. He remains on DuoNeb inhalations as needed. Paracentesis is pending. Echocardiogram pending. Hepatitis screen negative. Objective - Vital Signs Vital signs: Vital Signs Temp 97.4 F L 01/06/25 07:00 Pulse 75 01/06/25 10:57 Resp 16 01/06/25 10:57 BP 113/65 01/06/25 10:57 Pulse Ox 93 L 01/06/25 10:57 FiO2 Intake & Output 01/05/25 01/06/25 01/06/25 18:59 06:59 18:59 Intake Total 250 Balance 250 Weight 83.915 kg Intake: Oral 250 Other: Voiding Method Toilet # Voids 1 - Exam GENERAL EXAM: Alert, pleasant 79-year-old male, hard of hearing, comfortable in no apparent distress. HEAD: Normocephalic and atraumatic EYES: Normal reaction of pupils, equal size. NOSE: Clear with pink turbinates. THROAT: No erythema or exudates. NECK: No masses, no JVD. CHEST: No chest wall deformity. LUNGS: Equal air entry with no crackles, wheeze, rhonchi or dullness. on room air oxygen, No conversational dyspnea. CVS: S1 and S2 normal with no audible murmur, regular rhythm. No extra heart sounds ABDOMEN: Abdominal distention, active bowel sounds, no guarding or rigidity, with hepatomegaly. SPINE: No scoliosis or deformity SKIN: No rashes CENTRAL NERVOUS SYSTEM: No focal deficits, tone is normal in all 4 extremities. EXTREMITIES: There 1-2+ bilateral lower extremity edema. No clubbing, or cyanosis. Peripheral pulses are intact. - Labs CBC & Chem 7: 01/05/25 06:48 01/05/25 06:48 Assessment and Plan Assessment: Hepatic masses, largest is complex in the posterior right lobe measuring 9.7 x 10.8 x 11.7 cm, concerning for malignancy Abdominal ascites, paracentesis pending for today Abdominal distention, secondary to above Exertional dyspnea, suspect secondary to above Bilateral lower extremity edema Thoracic aorta measuring 4.2 cm Former tobacco smoker, quit in 1995, with approximately 30-40 pack years history History of heavy alcohol use Hard of hearing History of recurrent nephrolithiasis Plan: The patient was seen and evaluated Imaging, labs and medications reviewed Stable and on room air oxygen Plan is for paracentesis today Hepatitis screen negative Echocardiogram pending Continue bronchodilators as needed Medical oncology is following Pulmonary will follow as needed This patient was seen independently by the pulmonary nurse practitioner addressing pulmonary issues I have personally seen and examined the patient, performed the documentation and the assessment and plan as written. Number of minutes spent on the visit: 24 Dictation was produced using marinanow dictation software. Please excuse any grammatical, word or spelling errors.
--- NOTE | 2025-01-06 12:24 | US ---
EXAMINATION TYPE: US paracentesis abd w/image DATE OF EXAM: 01/06/2025 10:59 AM COMPARISON: CT CLINICAL INDICATION:Male, 79 years old with history of See IR consult for order details; , ascites ATTENDING: Dr. Austin Santo PROCEDURE: Informed consent was obtained. The risks of the procedure were extensively explained incl uding risk of damage to surrounding bowel with perforation and need for additional procedures. Proced ure was performed in the ultrasound procedure suite. Ultrasound imaging of the abdomen demonstrate as citic fluid. An appropriate access site was localized to the left lower abdomen. Timeout was taken pe r protocol. The skin was prepped and draped in the usual sterile fashion and then locally anesthetize d with 1% lidocaine. The peritoneal cavity was then accessed via a 5-Hungarian one-step needle/catheter . Approximately 4300 mL of clear straw-colored fluid was obtained. Samples were sent to the lab for analysis. Postprocedural imaging of the abdomen demonstrate a minimal amount of abdominal fluid. Patient tolerated procedure well without immediate complication. Hemostasis at the procedural site w as obtained with a sterile bandage placed. The patient was monitored in the holding area following th e procedure and was subsequently discharged in stable condition. IMPRESSION: Ultrasound guided paracentesis, with approximately clear straw-colored mL of clear straw-colored flui d drained. Pathology results pending. No immediate complications were evident. [facility], , 01/06/2025 12:21 PM
--- NOTE | 2025-01-06 12:26 | CT ---
EXAMINATION TYPE: CT biopsy liver DATE OF EXAM: 01/06/2025 12:19 PM COMPARISON: None CLINICAL INDICATION:Male, 79 years old with history of See IR consult for order details.; Liver mass TECHNIQUE: CT guided percutaneous liver mass using coaxial method. One or more CT dose reduction strategies were utilized during this examination. . CT DLP: 1193 mGycm, Automated exposure control for dose reductio n was used. FINDINGS: The procedure was explained to the patient including risks of bleeding, bruising, infection, damage t o nearby organs and need for additional therapy including potential surgery. All questions were answ ered and consent was obtained. The previous studies were reviewed. The patient was placed on the CT couch in the supine position. The overlying skin was marked and prepped using sterile method. Timeout was taken per protocol. Follo wing administration of local anesthesia a 17 gauge coaxial needle was introduced on the right inferio r hepatic lobe mass. The coaxial needle tip was directed into the mass with CT guidance. Multiple 1 8 gauge coaxial biopsies were then obtained. Following the procedure the needle was removed and st erile dressing was applied to the percutaneous site. Post biopsy imaging demonstrated no evidence of large hemorrhage. Patient was taken for postprocedure observation in stable condition. IMPRESSIONS: Status post percutaneous right hepatic lobe mass biopsy as described above. Pathology results pending . [facility], , 01/06/2025 12:24 PM
--- NOTE | 2025-01-06 13:53 | CA ---
Transthoracic Echo Report Name: Pete Koehler Age: 79 Gender: M : 1945 Exam Date: 01/05/2025 07:28 Exam Location: [facility] Ht (in): 70 Wt (lb): 185 Ordering Physician: Darline Amado MD Attending/Referring Phys: Meat Grader Kristi Hearn RDCS Procedure CPT: Indications: rule out CHF, Cardiomyopathy, unspecified Cardiac Hx: Technical Quality: Fair Contrast 1: Total Dose (mL): Contrast 2: Total Dose (mL): MEASUREMENTS (Male / Female) Normal Values 2D ECHO LV Diastolic Diameter PLAX 3.9 cm 4.2 - 5.9 / 3.9 - 5.3 cm LV Systolic Diameter PLAX 2.7 cm IVS Diastolic Thickness 1.2 cm 0.6 - 1.0 / 0.6 - 0.9 cm LVPW Diastolic Thickness 1.3 cm 0.6 - 1.0 / 0.6 - 0.9 cm LV Relative Wall Thickness 0.6 RV Internal Dim ED PLAX 4.0 cm LVOT Diameter 2.0 cm LA Systolic Diameter LX 3.6 cm 3.0 - 4.0 / 2.7 - 3.8 cm LV Diastolic Volume MOD 4C 86.6 cm??? LV Systolic Volume MOD 4C 37.2 cm??? LV Ejection Fraction MOD 4C 57.0 % LV Cardiac Index MOD 4C 1710.8 cm???/min???m??? LV Diastolic Length 4C 8.0 cm LV Systolic Length 4C 6.7 cm LA Volume 39.0 cm??? 18 - 58 / 22 - 52 cm??? LA Volume Index 19.0 cm???/m??? 16 - 28 cm???/m??? M-MODE Aortic Root Diameter MM 3.5 cm AV Cusp Separation MM 1.5 cm DOPPLER AV Peak Velocity 356.4 cm/s AV Peak Gradient 50.8 mmHg AV Mean Velocity 260.9 cm/s AV Mean Gradient 31.6 mmHg AV Velocity Time Integral 89.1 cm AI Peak Velocity 394.4 cm/s AI Peak Gradient 62.2 mmHg AI Pressure Half Time 356.6 ms LVOT Peak Velocity 76.3 cm/s LVOT Peak Gradient 2.3 mmHg LVOT Velocity Time Integral 19.8 cm LVOT Stroke Volume 59.7 cm??? LVOT Stroke Volume Index 29.6 ml/m??? LVOT Cardiac Index 2068.9 cm???/min???m??? AV Area Cont Eq vti 0.7 cm??? AV Area Cont Eq pk 0.6 cm??? MV Peak Velocity 104.6 cm/s MV Peak Gradient 4.4 mmHg MV Mean Velocity 54.3 cm/s MV Mean Gradient 1.5 mmHg MV Velocity Time Integral 27.5 cm MV Area PHT 3.0 cm??? Mitral E Point Velocity 81.0 cm/s Mitral A Point Velocity 83.9 cm/s Mitral E to A Ratio 1.0 MV Deceleration Time 250.1 ms TV Peak Velocity 130.6 cm/s TR Peak Velocity 260.8 cm/s TR Peak Gradient 27.2 mmHg Right Ventricular Systolic Press 41.6 mmHg FINDINGS Left Ventricle Left ventricular ejection fraction is estimated at 50-55 %. Mildly increased septal wall thickness.no obvious regional wall motion abnormalities. Left ventricular cavity size normal. Mild concentric LVH. Septal shadow noted suggestive of RV pressure overload Right Ventricle Moderate right ventricular dilatation. Normal right ventricular function. Trabeculation of the right ventriclar apex. RVSP estimated at 42 mmHg. Right Atrium Severe right atrial dilatation. No right atrial thrombus or mass seen. Left Atrium Normal left atrial size. No left atrial thrombus or mass present. Mitral Valve Mild thickening/calcification of the anterior and posterior mitral valve leaflet. Mild mitral annular calcification. No mitral stenosis. Trace mitral regurgitation. Aortic Valve Heavily calcified aortic valve with moderate to severe aortic stenosis with a peak gradient of 51 mmHg and a mean gradient of 32 mmHg. VTI ratio 0.22. Moderate aortic regurgitation. Tricuspid Valve The tricuspid valve is Mildly thickened and is not closing. Torrential tricuspid regurgitation. Pulmonic Valve Pulmonic valve not well visualized. Trace pulmonic regurgitation. Pericardium No pericardial effusion. Pleural effusion. Aorta Normal size aortic root . proximal ascending aorta not well visualized. CONCLUSIONS LVEF 50 to 55% Mild concentric LVH Signs of RV pressure and volume overload with dilated RV and RVSP estimated at 42 mmHg. Noncoapting tricuspid valve with Torrential tricuspid regurgitation. 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 Moderate to severe stenosis, moderate regurgitation. VTI ratio 0.22. Mean gradient 32 mmHg Previewed by: Dr Bienvenido Dumont (Electronically Signed) Final Date: 05 January 2025 12:00
--- NOTE | 2025-01-06 16:51 | P.PN ---
Subjective Progress Note Date: 01/06/25 Patient was seen and examined. RN reports diarrhea. Patient reports diarrhea since he started to get weak. He did reports having a C-scope in 2020 which he was told was normal. CT AP confirms large lesions within the liver along with 2 soft tissue lesions within the mesentery. Plans for paracentesis and liver biopsy today. General: non toxic, no distress, appears at stated age Derm: warm, dry Head: atraumatic, normocephalic, symmetric Eyes: EOMI, no lid lag, anicteric sclera Mouth: no lip lesion, mucus membranes moist Cardiovascular: S1S2 reg, no murmur Lungs: Decreased BS bilateral, no rhonchi, no rales , no accessory muscle use Abd: Soft. Slightly distended. Non tender to palpation Ext: no gross muscle atrophy, no edema, no contractures Neuro: no focal neuro deficits Psych: Alert and oriented. Based on my assessment of this patient, this patient meets a high complexity level of care. Liver lesions suspicion for metastatic cancer: Oncology on board. CT AP as above. Liver MRI pending. Plans for IR liver biopsy and paracentesis. Given his recent change in bowel habit, would benefit from C-scope if agreeable. Oncology on board. Dyspnea rule out CHF: BNP 1750. 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 Echo is pending. Normocytic anemia: Stable no signs of active bleeding. Monitor. Protein calorie malnutrition, severe: Unable to take care of ADL or IADLs. PT and OT consult. Fall precautions. Need for possible placement. Add Ensure TID. Resolved: Hyperbiliruibinemia Discussed with case management. Patient declines hospice or SNF. Clearly unable to take care of himself. He did mention to case management that he wants to go home and , also adding that if he doesnt feel he is dying quick enough at home, "he will just pull the trigger". Psychiatry will be consulted to see this patient. CODE STATUS: FULL CODE. DVT Prophylaxis: GI Prophylaxis: Designated medical POA if patient is not able to make medical decisions for themselves: I have reviewed the following virtualization consultant notes: Pulmonary I have reviewed the results of the following tests: CT AP I have ordered the following tests: I have discussed the care of this patient with the following independent histor anjana: BRIAN. I have independently interpreted the following test below: I have discussed the management of this patient with the following physician: Objective - Vital Signs Vital signs: Vital Signs Temp 97.7 F 01/06/25 12:20 Pulse 73 01/06/25 14:50 Resp 17 01/06/25 12:20 BP 97/59 01/06/25 14:50 Pulse Ox 95 01/06/25 12:20 FiO2 Intake & Output 01/05/25 01/06/25 01/06/25 18:59 06:59 18:59 Intake Total 250 120 Balance 250 120 Weight 83.915 kg 83.915 kg Intake: Oral 250 120 Other: Voiding Method Toilet Toilet # Voids 1 - Labs CBC & Chem 7: 01/05/25 06:48 01/05/25 06:48
[2025-01-07 04:17] LABS: Glucose, BF Source Ascites; Glucose, Body Fluid 63 mg/dL; T. Protein, Body Fluid Source Ascites; Total Protein, Body Fluid 3260 mg/dL
[2025-01-07 04:43] LABS: Appearance,BF Clear (Clear)
--- NOTE | 2025-01-07 13:16 | P.PN ---
Subjective Progress Note Date: 01/07/25 Patient was seen and examined. Underwent paracentesis and liver biopsy yesterday. Still having diarrhea. Enjoys drinking Ensure. Denies any suicidal ideation. Discussed with Shreyas FLORES, follow up with Oncology in the clinic for further workup and management. Discussed with Psyc, does not meet criteria for i npatient psyc. Echo shows EF 50-55% mild concentric LVH, trace MR/CT/TR, mod- severe , mod AR. General: non toxic, no distress, appears at stated age Derm: warm, dry Head: atraumatic, normocephalic, symmetric Eyes: EOMI, no lid lag, anicteric sclera Mouth: no lip lesion, mucus membranes moist Cardiovascular: S1S2 reg, + murmur Lungs: Decreased BS bilateral, no rhonchi, no rales , no accessory muscle use Abd: Soft. Slightly distended. Non tender to palpation Ext: no gross muscle atrophy, no edema, no contractures Neuro: no focal neuro deficits Psych: Alert and oriented. Based on my assessment of this patient, this patient meets a high complexity level of care. Liver lesions suspicion for metastatic cancer: Oncology on board. CT AP as above. Status post IR liver biopsy and paracentesis. Given his recent change in bowel habit, would benefit from C-scope if agreeable. Oncology on board. Dyspnea likely due to severe : BNP 1750. 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 Echo as above, patient is extremely debilitated at this time, will defer to Cardiology in the outpatient setting for workup of . Normocytic anemia: Stable no signs of active bleeding. Monitor. Protein calorie malnutrition, severe: Unable to take care of ADL or IADLs. PT and OT consult. Fall precautions. Need for possible placement. Add Ensure TID. Depressed mood: Psychiatry consulted. Resolved: Hyperbiliruibinemia Patient appears agreeable for SNF now. Will discuss with case management. CODE STATUS: FULL CODE. DVT Prophylaxis: GI Prophylaxis: Designated medical POA if patient is not able to make medical decisions for themselves: I have reviewed the following change management consultant notes: I have reviewed the results of the following tests: Echo I have ordered the following tests: I have discussed the care of this patient with the following independent historian: BRIAN. I have independently interpreted the following test below: I have discussed the management of this patient with the following physician: Psaxel, Pritchett [employer] Objective - Vital Signs Vital signs: Vital Signs Temp 97.4 F L 01/07/25 08:00 Pulse 77 01/07/25 08:00 Resp 16 01/07/25 08:00 BP 97/59 01/07/25 08:00 Pulse Ox 93 L 01/07/25 08:00 FiO2 Intake & Output 01/06/25 01/07/25 01/07/25 18:59 06:59 18:59 Intake Total 120 472 Balance 120 472 Weight 83.915 kg Intake: Oral 120 472 Other: Voiding Method Toilet Toilet # Voids 1 # Bowel Movements 1 - Labs CBC & Chem 7: 01/05/25 06:48 01/05/25 06:48
--- NOTE | 2025-01-07 13:28 | P.CN ---
Psychiatric Consult - . Consult date: 01/07/25 Consult:: 01/07/25 13:16 IDENTIFYING DATA: This patient is a 79-year-old male, living independently, retired REASON FOR REFERRAL: Psychiatry was consulted for depressed mood HISTORY OF PRESENT ILLNESS: The patient presented to the hospital with weakness in the context of weight loss. CT abdomen/pelvis did reveal several lesions within the right hepatic lobe with 2 soft tissue lesions within the mesentery with suspicions for meta stasis within the pelvis and moderate to large volume of ascites. Oncology was consulted and patient is status post paracentesis and liver biopsy. Patient reportedly made comments of pulling the trigger if he does not fast enough, declining hospice or SNF. Patient was seen and evaluated in his room, he was reactive however intermittently tearful. Patient reports a strong dago in his quaker, stating that he is not angry with the possible cancer diagnosis and that he has excepted fate. He states he live a long life, most of his immediate relatives have since passed. He denied any past psych history, denied any current thoughts of wanting to harm himself. He states not feeling depressed. Given his weakness, rehab was discussed with patient to which he states been open did hearing a little bit more about this. At this time patient denies any suicidal or homicidal ideations, intent or plan. Patient denies any auditory, visual hallucinations and denies any paranoia or delusions. Patients admits to using no substances. PAST PSYCHIATRIC HISTORY: Patient has no past psych history. Patient denies being on any psychiatric medications. Patient denies any previous psychiatric hospitalizations. Patient denies any psychiatric outpatient follow-up. Patient denies any history of suicide attempts in the past. PAST MEDICAL HISTORY: COPD, Renal Disease. ALLERGIES: as per EMR. CHEMICAL DEPENDENCY HISTORY: as per HPI. FAMILY PSYCHIATRIC/SUBSTANCE USE HISTORY: Denies SOCIAL HISTORY: Patient is , has no children and lives alone with his dog. He is retired. MENTAL STATUS EXAM: General Appearance: Patient appears to be stated age is alert, pleasant, and cooperative. Patient appears to have fair hygiene and grooming wearing hospital gown with fair eye contact. Behavior: Patient is calmly lying in bed without any agitated behavior. He is intermittently tearful Speech: Patient's speech is fluent and nonpressured. Mood/Affect: Patient reports their mood is "okay", affect is congruent, reactive Suicidality/Homicidality: Patient denies having any suicidal or homicidal ideation intent or plan. Perceptions: Patient denies any visual hallucinations and denies any auditory hallucinations Though content/process: There is no evidence of any delusional thought content and thought process is linear and goal-directed. Memory and concentration: AOX3, grossly intact for the purposes of this session. Can spell "WORLD" backwards Judgment and insight: Poor IMPRESSIONS: Adjustment disorder with depressed mood PLAN: -At this time patient DOES NOT meet criteria for inpatient psychiatric admission. Patient denied any current suicidal ideations. If patient is to return home, will recommend any firearms to be removed prior to discharge -Would recommend the following medication changes/additions: None -Can discontinue 1:1 sitter at this time as patient is not currently an imminent threat to themselves -Psychiatry will sign off at this time -Please contact with any questions.
--- NOTE | 2025-01-07 17:48 | P.PN ---
Subjective Progress Note Date: 01/07/25 Pt tearful today regarding concern for malignancy, and overall health. Had detailed discussion today with patient and admitting team. Discussed oncology POC and possible rehab upon discharge, pt was agreeable to the same. Objective - Vital Signs Vital signs: Vital Signs Temp 97.4 F L 01/07/25 08:00 Pulse 77 01/07/25 08:00 Resp 16 01/07/25 08:00 BP 97/59 01/07/25 08:00 Pulse Ox 93 L 01/07/25 08:00 FiO2 Intake & Output 01/06/25 01/07/25 01/07/25 18:59 06:59 18:59 Intake Total 120 472 Balance 120 472 Weight 83.915 kg Intake: Oral 120 472 Other: Voiding Method Toilet Toilet # Voids 1 # Bowel Movements 1 - Labs CBC & Chem 7: 01/05/25 06:48 01/05/25 06:48 Assessment and Plan (1) Ascites Current Visit: Yes Status: Acute Code(s): R18.8 - OTHER ASCITES SNOMED Code(s): 115235553 (2) Generalized weakness Current Visit: Yes Status: Acute Code(s): R53.1 - WEAKNESS SNOMED Code(s): 46546076 (3) Liver lesion Current Visit: Yes Status: Acute Code(s): K76.9 - LIVER DISEASE, UNSPECIFIED SNOMED Code(s): 876946778 Plan: Liver mass: Presented with progressing weakness and fatigue. Reports he has been experiencing abdominal pain and bowel changes over the last 6 months, with 40-50 pound weight loss over the last 1 year -On admit CTA chest was negative for PE no acute pulmonary processes. Ascites with suspected hepatic mass. -Liver ultrasound revealed multiple masslike areas seen within the liver, largest is complex in the posterior right lobe measuring 9.7 x 10.8 x 11.7 cm with vascularity seen within, and ascites. -Bilirubin 1.5, AST 23, ALT 17, ALP 153, lipase 38. -CT AP w/ contrast showed multiple bilobar enhancing lesions with large lesions within the right hepatic lobe. Additionally there are 2 distinct heterogeneous enhancing soft tissue lesions within the mesentery. Additional suspected mesenteric implants within the pelvis. Moderate to large volume ascites with diffuse anasarca. -Patient underwent liver biopsy and paracentesis with 4.3 L removed. Cytology and pathology pending Findings and concerns for malignancy were discussed with patient. Oncology plan of care was discussed in detail. All questions and concerns were addressed Discussed case with admitting team, pt will likely need rehab on discharge due to significant weakness Clinic f/u will be scheduled upon discharge. Any cancer treatment would be on hold until discharged from rehab
--- NOTE | 2025-01-08 13:15 | P.PN ---
Subjective Progress Note Date: 01/08/25 Patient was seen and examined. No acute events overnight. Apparently told RN that he would like to DC to hospice facility in [place]. General: non toxic, no distress, appears at stated age Derm: warm, dry Head: atraumatic, normocephalic, symmetric Eyes: EOMI, no lid lag, anicteric sclera Mouth: no lip lesion, mucus membranes moist Cardiovascular: S1S2 reg, + murmur Lungs: Decreased BS bilateral, no rhonchi, no rales , no accessory muscle use Abd: Soft. Slightly distended. Non tender to palpation Ext: no gross muscle atrophy, no edema, no contractures Neuro: no focal neuro deficits Psych: Alert and oriented. Based on my assessment of this patient, this patient meets a high complexity level of care. Liver lesions suspicion for metastatic cancer: Oncology on board. CT AP as above. Status post IR liver biopsy and paracentesis. Given his recent change in bowel habit, would benefit from C-scope. Oncology on board. Dyspnea likely due to severe : BNP 1750. 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 Echo as above, patient is extremely debilitated at this time, will defer to Cardiology in the outpatient setting for workup of . Normocytic anemia: Stable no signs of active bleeding. Monitor. Protein calorie malnutrition, severe: Unable to take care of ADL or IADLs. PT and OT consult. Fall precautions. Need for placement. Add Ensure TID. Depressed mood: Psychiatry on board. Resolved: Hyperbiliruibinemia Patient would like hospice at [place]. Discharge pending safe dispo plan. CODE STATUS: FULL CODE. DVT Prophylaxis: GI Prophylaxis: Designated medical POA if patient is not able to make medical decisions for themselves: I have reviewed the following art consultant notes: I have reviewed the results of the following tests: I have ordered the following tests: CBC and BMP in the AM. I have discussed the care of this patient with the following independent historian: BRIAN. I have independently interpreted the following test below: I have discussed the management of this patient with the following physician: Objective - Vital Signs Vital signs: Vital Signs Temp 98.1 F 01/08/25 08:00 Pulse 71 01/08/25 08:00 Resp 16 01/08/25 08:00 BP 90/41 01/08/25 08:00 Pulse Ox 95 01/08/25 08:00 FiO2 Intake & Output 01/07/25 01/08/25 01/08/25 18:59 06:59 18:59 Intake Total 472 Balance 472 Intake: Oral 472 Other: Voiding Method Toilet Toilet # Voids 1 # Bowel Movements 1 - Labs CBC & Chem 7: 01/05/25 06:48 01/05/25 06:48 Labs: Microbiology - Last 24 Hours (Table) 01/06/25 10:45 Gram Stain - Preliminary Ascites Fluid Body Fluid Culture - Preliminary
[2025-01-09 06:03] LABS: HCT 33.4 % (39.6-50.0); HGB 11.5 g/dL (13.0-17.0); MCH 29.8 pg (27.0-32.0); MCHC 34.4 g/dL (32.0-37.0); MCV 86.5 fL (80.0-97.0); Platelet Count 267 10*3/uL (140-440); RBC 3.86 10*6/uL (4.40-5.60); RDW 15.7 % (11.5-14.5); WBC 7.54 10*3/uL (4.50-10.00)
[2025-01-09 06:24] LABS: African American GFR (CKD) >90 (>60 ml/min/1.73 sqM); Anion Gap 3 mmol/L; Blood Urea Nitrogen 24 mg/dL (9-20); Calcium 8.6 mg/dL (8.4-10.2); Carbon Dioxide 23 mmol/L (22-30); Chloride 110 mmol/L (98-107); Glucose 97 mg/dL (74-99); Non-African American GFR(CKD) >90 (>60 ml/min/1.73 sqM); Potassium 3.9 mmol/L (3.5-5.1); Sodium 136 mmol/L (137-145)
--- NOTE | 2025-01-09 11:45 | US ---
EXAMINATION TYPE: US venous doppler duplex LE LT DATE OF EXAM: 01/09/2025 11:09 AM COMPARISON: NONE CLINICAL INDICATION: Male, 79 years old with history of swelling r/o dvt; edema TECHNIQUE: The lower extremity deep venous system is examined utilizing real time linear array sonog timmy with graded compression, doppler sonography and color-flow sonography. Grayscale, color doppler , spectral doppler imaging performed of the deep veins of the lower extremities FINDINGS: SIDE PERFORMED: Left VESSELS IMAGED: Common Femoral Vein Deep Femoral Vein Greater Saphenous Vein * Femoral Vein Popliteal Vein Small Saphenous Vein * Proximal Calf Veins (* superficial vessels) Left Leg: Negative for DVT; There is normal flow, compressibility, vascular waveforms. exam limited by pitting edema at the calf. Bidirectional flow noted at bilateral CFVs IMPRESSION: No evidence for deep vein thrombosis. [facility], , 01/09/2025 11:43 AM
--- NOTE | 2025-01-09 11:45 | P.PN ---
Subjective Progress Note Date: 01/09/25 Patient was seen and examined. Reports more abdominal bloating and LLE swelling. Plans for SNF versus hospice on discharge. CBC and BMP significant for RBC 3.86, Hg 11.5, Hct 33.4, Na 136, Cl 110, BUN 24, Cr 0.61. General: non toxic, no distress, appears at stated age Derm: warm, dry Head: atraumatic, normocephalic, symmetric Eyes: EOMI, no lid lag, anicteric sclera Mouth: no lip lesion, mucus membranes moist Cardiovascular: S1S2 reg, + murmur Lungs: Decreased BS bilateral, no rhonchi, no rales , no accessory muscle use Abd: Soft. Slightly distended. Non tender to palpation Ext: no gross muscle atrophy, no edema, no contractures Neuro: no focal neuro deficits Psych: Alert and oriented. Based on my assessment of this patient, this patient meets a high complexity level of care. Liver lesions suspicion for metastatic cancer: Oncology on board. CT AP as above. Status post IR liver biopsy and paracentesis. Given his recent change in bowel habit, would benefit from C-scope. Oncology on board. Repeat Abd US ordered for possible paracentesis. LLE swelling: Venous duplex to rule out DVT. Dyspnea likely due to severe : BNP 1750. 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 Echo as above, patient is extremely debilitated at this time, will defer to Cardiology in the outpatient setting for workup of . Normocytic anemia: Stable no signs of active bleeding. Monitor. Protein calorie malnutrition, severe: Unable to take care of ADL or IADLs. Continue Ensure TID. PT and OT on board. Fall precautions. Need for placement. Depressed mood: Psychiatry on board. Resolved: Hyperbiliruibinemia Patient would like hospice at [place]. Discharge pending safe dispo plan. CODE STATUS: FULL CODE. DVT Prophylaxis: GI Prophylaxis: Designated medical POA if patient is not able to make medical decisions for themselves: I have reviewed the following nissan sales consultant notes: I have reviewed the results of the following tests: CBC and BMP. I have ordered the following tests: Venous duplex of LLE. Abd US ordered. I have discussed the care of this patient with the following independent hist orian: I have independently interpreted the following test below: I have discussed the management of this patient with the following physician: Objective - Vital Signs Vital signs: Vital Signs Temp 97.8 F 01/09/25 07:06 Pulse 68 01/09/25 07:06 Resp 16 01/09/25 07:06 BP 101/61 01/09/25 07:06 Pulse Ox 94 L 01/09/25 07:06 FiO2 Intake & Output 01/08/25 01/09/25 01/09/25 18:59 06:59 18:59 Intake Total 358 Balance 358 Intake: Oral 358 Other: Voiding Method Toilet Toilet # Voids 1 1 1 - Labs CBC & Chem 7: 01/09/25 05:24 01/09/25 05:24 Labs: Abnormal Lab Results - Last 24 Hours (Table) 01/09/25 01/09/25 Range/Units 05:24 05:24 RBC 3.86 L (4.40-5.60) 10*6/uL Hgb 11.5 L (13.0-17.0) g/dL Hct 33.4 L (39.6-50.0) % RDW 15.7 H (11.5-14.5) % MPV 8.8 L (9.5-12.2) fL Sodium 136 L (137-145) mmol/L Chloride 110 H (98-107) mmol/L BUN 24 H (9-20) mg/dL Creatinine 0.61 L (0.66-1.25) mg/dL Microbiology - Last 24 Hours (Table) 01/06/25 10:45 Gram Stain - Preliminary Ascites Fluid Body Fluid Culture - Preliminary
--- NOTE | 2025-01-09 11:48 | US ---
EXAMINATION TYPE: US abdomen limited DATE OF EXAM: 01/09/2025 COMPARISON: NONE CLINICAL INDICATION: Male, 79 years old with history of distention; eval for para TECHNIQUE: Grayscale imaging of the abdomen for ascites. FINDINGS: Moderate ascites. Largest pocket is located at the left lower quadrant measuring up to 5.2 cm and is 1.6 cm from the skin surface. IMPRESSION: Ascites [facility], , 01/09/2025 11:46 AM
[2025-01-10] MEDS: MIDODRINE 5 MG TAB PO STA (02:29)
[2025-01-10] MEDS: SODIUM CHLORIDE 0.9% 1,000 ML IV SCH (05:50)
--- NOTE | 2025-01-10 13:01 | P.PN ---
Subjective Progress Note Date: 01/10/25 79 year old M with PMH of COPD presents to the ED for abdominal distention, SOB and weight loss progressively getting worse over the past 2 weeks. In the ED he underwent extensive evaluation. T97.9F, HR 80, RR 20, BP 112/58, O2 sat 94% on RA. Patient was seen and examined. Reports more abdominal bloating and LLE swelling. Plans for SNF versus hospice on discharge. CBC and BMP significant for RBC 3.86, Hg 11.5, Hct 33.4, Na 136, Cl 110, BUN 24, Cr 0.61. Labs significant for RBC 4 .25, Hg 12.7, Hct 37.9, PT 12.7, INR 1.2, K 3.4, BUN 26, glu 110, T. Bili 1.5, alk phos 153, Trop < 0.012, BNP 1750, alb 3.1, Lipase 38. UA neg LE or nitire. COVID, RSV, Flu neg. 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 Liver US shows metastasis within the liver, renal cysts and ascites. Brain CT neg for metastatic lesions. CT AP confirms large lesions within the liver along with 2 soft tissue lesions within the mesentery. He underwent paracentesis and liver biopsy on 01/06. 01/10 Patient was seen and examined. Abd US showed ascites but IR reports not enough to drain. LLE duplex negative for DVT. Discussed with case management, plans for hospice house at [place]. General: non toxic, no distress, appears at stated age Derm: warm, dry Head: atraumatic, normocephalic, symmetric Eyes: EOMI, no lid lag, anicteric sclera Mouth: no lip lesion, mucus membranes moist Cardiovascular: S1S2 reg, + murmur Lungs: Decreased BS bilateral, no rhonchi, no rales , no accessory muscle use Abd: Soft. Slightly distended. Non tender to palpation Ext: no gross muscle atrophy, no edema, no contractures Neuro: no focal neuro deficits Psych: Alert and oriented. Based on my assessment of this patient, this patient meets a high complexity level of care. Liver lesions suspicion for metastatic cancer: Oncology on board. CT AP as above. Status post IR liver biopsy and paracentesis. Given his recent change in bowel habit, would benefit from C-scope. Oncology on board. LLE swelling: Venous duplex neg for DVT. Recommend KRUPA wrap and LLE elevation. Dyspnea likely due to severe : BNP 1750. 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 Echo as above, patient is extremely debilitated at this time, will defer to Cardiology in the outpatient setting for workup of . Normocytic anemia: Stable no signs of active bleeding. Monitor. Protein calorie malnutrition, severe: Unable to take care of ADL or IADLs. Continue Ensure TID. PT and OT on board. Fall precautions. Need for placement. Depressed mood: Psychiatry on board. Resolved: Hyperbiliruibinemia Patient would like hospice at [place]. Discharge pending safe dispo plan. CODE STATUS: FULL CODE. DVT Prophylaxis: GI Prophylaxis: Designated medical POA if patient is not able to make medical decisions for themselves: I have reviewed the following [employer] ax consultant notes: I have reviewed the results of the following tests: Venous duplex of LLE. Abd US ordered. I have ordered the following tests: I have discussed the care of this patient with the following independent historian: Case management. RN. I have independently interpreted the following test below: I have discussed the management of this patient with the following physician: Objective - Vital Signs Vital signs: Vital Signs Temp 98.0 F 01/10/25 07:16 Pulse 71 01/10/25 07:16 Resp 16 01/10/25 07:16 BP 97/61 01/10/25 07:16 Pulse Ox 94 L 01/10/25 07:16 FiO2 Intake & Output 01/09/25 01/10/25 01/10/25 18:59 06:59 18:59 Intake Total 716 Balance 716 Intake: Oral 716 Other: Voiding Method Toilet # Voids 4 2 - Labs CBC & Chem 7: 01/09/25 05:24 01/09/25 05:24 Labs: Microbiology - Last 24 Hours (Table) 01/06/25 10:45 Gram Stain - Preliminary Ascites Fluid Body Fluid Culture - Preliminary 01/06/25 10:45 Anaerobic Culture - Preliminary Ascites Fluid
[2025-01-10] MEDS: LOPERAMIDE 2 MG CAP PO PRN (20:14)
--- NOTE | 2025-01-11 14:36 | P.PN ---
Subjective Progress Note Date: 01/11/25 Hospital Course: 79 year old M with PMH of COPD presents to the ED for abdominal distention, SOB and weight loss progressively getting worse over the past 2 weeks. In the ED he underwent extensive evaluation. T97.9F, HR 80, RR 20, BP 112/58, O2 sat 94% on RA. Patient was seen and examined. Reports more abdominal bloating and LLE swelling. Plans for SNF versus hospice on discharge. CBC and BMP significant for RBC 3.86, Hg 11.5, Hct 33.4, Na 136, Cl 110, BUN 24, Cr 0.61. Labs significant for RBC 4.25, Hg 12.7, Hct 37.9, PT 12.7, INR 1.2, K 3.4, BUN 26, glu 110, T. Bili 1.5, alk phos 153, Trop < 0.012, BNP 1750, alb 3.1, Lipase 38. UA neg LE or nitire. COVID, RSV, Flu neg. 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 Liver US shows metastasis within the liver, renal cysts and ascites. Brain CT neg for metastatic lesions. CT AP confirms large lesions within the liver along with 2 soft tissue lesions within the mesentery. He underwent paracentesis and liver biopsy on 01/06. Results are still pending with repeat ultrasound on 01/10 showed fluid to drain, LLE duplex negative for DVT. 01/11: Patient was seen and examined at bedside, no acute events overnight, he appears uncomfortable but not in acute distress, he mostly complains of being very weak and debilitated. We did have a very long conversation regarding his goals of care, he is interested in hospice, discussed with RN at bedside. Patient shared that he does not have any family members, his only friend is his DPOA who is older than him, discussed with case management, patient needs official POA documents signed, hospice consulted, biopsies pending. Patient is not interested in rehab placement at this time. Patient's CODE STATUS was discussed to DNR/DNI with RN witnessed this conversation. His vitals showed normal body temperature, heart rate in 70s, BP soft 104/66, satting well on room air, no new blood work obtained. Pertinent positives and negatives as discussed above, a complete review of systems was performed and all other systems are negative. Vitals Signs Reviewed. General: [nontoxic], [no distress], [chronically ill-appearing Derm: [warm], [dry] Head: [atraumatic], [normocephalic], [symmetric] Eyes: [EOMI], [no lid lag], [anicteric sclera] Mouth: [no lip lesion], [mucus membranes moist] Cardiovascular: [S1S2 reg], [no murmur] Lungs: Bilateral breath sounds [no rhonchi, no rales] , [no accessory muscle use] Abdominal: Abdomen is distended, nontender Ext: [no gross muscle atrophy], [no edema], [no contractures] Neuro: [ CN II-XI grossly intact], [no focal neuro deficits] Psych: [Alert], [oriented], [appropriate affect] Assessment and Plan: Liver lesions suspicion for metastatic cancer -Oncology on board. CT AP as above. Status post IR liver biopsy and paracentesis. Given his recent change in bowel habit, would benefit from C- scope. Oncology on board. -Consulted LLE swelling -Venous duplex neg for DVT. Recommend KRUPA wrap and LLE elevation. Dyspnea likely due to severe -BNP 1750. 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 Echo as above, patient is extremely debilitated at this time, will defer to Cardiology in the outpatient setting for workup of . Normocytic anemia -Stable no signs of active bleeding. Monitor. Protein calorie malnutrition, severe Failure to thrive -Unable to take care of ADL or IADLs. Continue Ensure TID. PT and OT on board. Fall precautions. Need for placement. Depressed mood: Psychiatry on board. Resolved: Hyperbiliruibinemia DVT ppx: SCD Code status: DNR/DNI Anticipated discharge place: Possible hospice, pending placement Anticipated discharge time: Optimized for discharge Objective - Vital Signs Vital signs: Vital Signs Temp 97.8 F 01/11/25 14:00 Pulse 74 01/11/25 14:00 Resp 16 01/11/25 14:00 BP 104/66 01/11/25 14:00 Pulse Ox 95 01/11/25 14:00 FiO2 Intake & Output 01/10/25 01/11/25 01/11/25 18:59 06:59 18:59 Intake Total 358 540 221 Balance 358 540 221 Weight 83.915 kg Intake: Oral 358 540 221 Other: Voiding Method Toilet # Voids 2 1 1 - Labs CBC & Chem 7: 01/09/25 05:24 01/09/25 05:24 Labs: Microbiology - Last 24 Hours (Table) 01/06/25 10:45 Gram Stain - Final Ascites Fluid Body Fluid Culture - Final
--- NOTE | 2025-01-12 11:31 | P.PN ---
Subjective Progress Note Date: 01/12/25 Hospital Course: 79 year old M with PMH of COPD presents to the ED for abdominal distention, SOB and weight loss progressively getting worse over the past 2 weeks. In the ED he underwent extensive evaluation. T97.9F, HR 80, RR 20, BP 112/58, O2 sat 94% on RA. Patient was seen and examined. Reports more abdominal bloating and LLE swelling. Plans for SNF versus hospice on discharge. CBC and BMP significant for RBC 3.86, Hg 11.5, Hct 33.4, Na 136, Cl 110, BUN 24, Cr 0.61. Labs significant for RBC 4.25, Hg 12.7, Hct 37.9, PT 12.7, INR 1.2, K 3.4, BUN 26, glu 110, T. Bili 1.5, alk phos 153, Trop < 0.012, BNP 1750, alb 3.1, Lipase 38. UA neg LE or nitire. COVID, RSV, Flu neg. 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 Liver US shows metastasis within the liver, renal cysts and ascites. Brain CT neg for metastatic lesions. CT AP confirms large lesions within the liver along with 2 soft tissue lesions within the mesentery. He underwent paracentesis and liver biopsy on 01/06. Results are still pending with repeat ultrasound on 01/10 showed fluid to drain, LLE duplex negative for DVT.. We did have a very long conversation regarding his goals of care, he is interested in hospice, discussed with RN at bedside. Patient shared that he does not have any family members, his only friend is his DPOA who is older than him, discussed with case management, patient needs official POA documents signed, hospice consulted, biopsies pending. Patient is not interested in rehab placement at this time. Patient's CODE STATUS was discussed to DNR/DNI with RN witnessed this conversation. 01/12: Patient was seen and examined at bedside, no acute events overnight, patient was sitting in the bed and having his breakfast, he states that he has minimal abdominal discomfort, not sure when he had his last bowel movement. Denied chest pain or shortness of breath. Biopsy results are still pending, discussed with RN, discussed with social work, we will need final diagnosis for hospice placement His vitals showed normal body temperature, heart rate in 70s, BP soft 104/66, satting well on room air, no new blood work obtained. Pertinent positives and negatives as discussed above, a complete review of systems was performed and all other systems are negative. Vitals Signs Reviewed. General: [nontoxic], [no distress], [chronically ill-appearing Derm: [warm], [dry] Head: [atraumatic], [normocephalic], [symmetric] Eyes: [EOMI], [no lid lag], [anicteric sclera] Mouth: [no lip lesion], [mucus membranes moist] Cardiovascular: [S1S2 reg], [no murmur] Lungs: Bilateral breath sounds [no rhonchi, no rales] , [no accessory muscle use] Abdominal: Abdomen is distended, nontender Ext: [no gross muscle atrophy], [no edema], [no contractures] Neuro: [ CN II-XI grossly intact], [no focal neuro deficits] Psych: [Alert], [oriented], [appropriate affect] Assessment and Plan: Liver lesions suspicion for metastatic cancer -Oncology on board. CT AP as above. Status post IR liver biopsy and paracentesis. Given his recent change in bowel habit, would benefit from C- scope. Oncology on board. -Consulted hospice -SW following LLE swelling -Venous duplex neg for DVT. Recommend KRUPA wrap and LLE elevation. Dyspnea likely due to severe -BNP 1750. 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 Echo as above, patient is extremely debilitated at this time, will defer to Cardiology in the outpatient setting for workup of . Normocytic anemia -Stable no signs of active bleeding. Monitor. Protein calorie malnutrition, severe Failure to thrive -Unable to take care of ADL or IADLs. Continue Ensure TID. PT and OT on board. Fall precautions. Need for placement. Depressed mood: Psychiatry on board. Resolved: Hyperbiliruibinemia DVT ppx: SCD Code status: DNR/DNI Anticipated discharge place: Possible hospice, pending placement Anticipated discharge time: Optimized for discharge Objective - Vital Signs Vital signs: Vital Signs Temp 97.3 F L 01/12/25 08:00 Pulse 71 01/12/25 08:00 Resp 18 01/12/25 08:00 BP 99/63 01/12/25 08:00 Pulse Ox 93 L 01/12/25 08:00 FiO2 Intake & Output 01/11/25 01/12/25 01/12/25 18:59 06:59 18:59 Intake Total 221 1080 Balance 221 1080 Intake: Oral 221 1080 Other: Voiding Method Toilet Toilet # Voids 1 1 - Labs CBC & Chem 7: 01/09/25 05:24 01/09/25 05:24 Labs: Microbiology - Last 24 Hours (Table) 01/06/25 10:45 Gram Stain - Final Ascites Fluid Body Fluid Culture - Final
--- NOTE | 2025-01-13 13:45 | P.PN ---
Subjective Progress Note Date: 01/13/25 Hospital Course: 79 year old M with PMH of COPD presents to the ED for abdominal distention, SOB and weight loss progressively getting worse over the past 2 weeks. In the ED he underwent extensive evaluation. T97.9F, HR 80, RR 20, BP 112/58, O2 sat 94% on RA. Patient was seen and examined. Reports more abdominal bloating and LLE swelling. Plans for SNF versus hospice on discharge. CBC and BMP significant for RBC 3.86, Hg 11.5, Hct 33.4, Na 136, Cl 110, BUN 24, Cr 0.61. Labs significant for RBC 4.25, Hg 12.7, Hct 37.9, PT 12.7, INR 1.2, K 3.4, BUN 26, glu 110, T. Bili 1.5, alk phos 153, Trop < 0.012, BNP 1750, alb 3.1, Lipase 38. UA neg LE or nitire. COVID, RSV, Flu neg. 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 Liver US shows metastasis within the liver, renal cysts and ascites. Brain CT neg for metastatic lesions. CT AP confirms large lesions within the liver along with 2 soft tissue lesions within the mesentery. He underwent paracentesis and liver biopsy on 01/06. Results are still pending with repeat ultrasound on 01/10 showed fluid to drain, LLE duplex negative for DVT.. We did have a very long conversation regarding his goals of care, he is interested in hospice, discussed with RN at bedside. Patient shared that he does not have any family members, his only friend is his DPOA who is older than him, discussed with case management, patient needs official POA documents signed, hospice consulted, biopsies pending. Patient is not interested in rehab placement at this time. Patient's CODE STATUS was discussed to DNR/DNI with RN witnessed this conversation. 01/13: Patient was seen and examined at bedside, no acute events overnight, , he states that he has minimal abdominal discomfort, not sure when he had his last bowel movement. Denied chest pain or shortness of breath. Afebrile, heart rate in 70s, blood pressure 102/61, satting well on room air. 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 Patient was notified on results. Plan to discharge to residential home with hospice on 01/14/discussed with RN, discussed with social work, hospice executive director Pertinent positives and negatives as discussed above, a complete review of systems was performed and all other systems are negative. Vitals Signs Reviewed. General: [nontoxic], [no distress], [chronically ill-appearing Derm: [warm], [dry] Head: [atraumatic], [normocephalic], [symmetric] Eyes: [EOMI], [no lid lag], [anicteric sclera] Mouth: [no lip lesion], [mucus membranes moist] Cardiovascular: [S1S2 reg], [no murmur] Lungs: Bilateral breath sounds [no rhonchi, no rales] , [no accessory muscle use] Abdominal: Abdomen is distended, nontender Ext: [no gross muscle atrophy], [no edema], [no contractures] Neuro: [ CN II-XI grossly intact], [no focal neuro deficits] Psych: [Alert], [oriented], [appropriate affect] Assessment and Plan: metastatic well-differentiated neuroendocrine tumor -Oncology on board. CT AP as above. Status post IR liver biopsy and paracentesis. -Consulted hospice -SW following LLE swelling -Venous duplex neg for DVT. Recommend KRUPA wrap and LLE elevation. Dyspnea likely due to severe -BNP 1750. 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 Echo as above, patient is extremely debilitated at this time, will defer to Cardiology in the outpatient setting for workup of . Normocytic anemia -Stable no signs of active bleeding. Monitor. Protein calorie malnutrition, severe Failure to thrive -Unable to take care of ADL or IADLs. Continue Ensure TID. PT and OT on board. Fall precautions. Need for placement. Depressed mood: Psychiatry on board. Resolved: Hyperbiliruibinemia DVT ppx: SCD Code status: DNR/DNI Anticipated discharge place: Possible hospice, pending placement Anticipated discharge time: Optimized for discharge Objective - Vital Signs Vital signs: Vital Signs Temp 97.5 F L 01/13/25 07:13 Pulse 70 01/13/25 07:13 Resp 17 01/13/25 07:13 BP 102/61 01/13/25 07:13 Pulse Ox 95 01/13/25 07:13 FiO2 Intake & Output 01/12/25 01/13/25 01/13/25 18:59 06:59 18:59 Intake Total 180 Balance 180 Intake: Oral 180 Other: Voiding Method Toilet Toilet Toilet # Voids 3 1 - Labs CBC & Chem 7: 01/09/25 05:24 01/09/25 05:24
[2025-01-14 08:14] VITALS: BP 97/59; PULSE 69; RESP 18; TEMP 97.7
--- NOTE | 2025-01-14 09:36 | P.DS ---
Providers Date of admission: 01/05/25 13:39 Attending physician: Katya Negrete MD Consults: 01/04/25 17:59 Consult Physician Routine Consulting Provider: Betty Alejandra Consult Reason/Comments: hypoxemia Do you want consulting provider notified?: Yes, Notify in am 01/05/25 01:23 Consult Physician Routine Consulting Provider: Pio Anderson Consult Reason/Comments: liver mass Do you want consulting provider notified?: Yes, Notify in am 01/06/25 16:35 Consult Physician Routine Consulting Provider: Psychiatry - [facility] Psychiatry Consult Reason/Comments: Depressed mood see progress note Do you want consulting provider notified?: Yes Primary care physician: Stated None Hospital Course: Discharge Diagnosis: metastatic well-differentiated neuroendocrine tumor LLE swelling Dyspnea likely due to severe Normocytic anemia Protein-calorie malnutrition, severe Failure to thrive Depressed mood Hospital Course: 79 year old M with PMH of COPD presents to the ED for abdominal distention, SOB and weight loss progressively getting worse over the past 2 weeks. In the ED he underwent extensive evaluation. T97.9F, HR 80, RR 20, BP 112/58, O2 sat 94% on RA. Patient was seen and examined. Reports more abdominal bloating and LLE swelling. Plans for SNF versus hospice on discharge. CBC and BMP significant for RBC 3.86, Hg 11.5, Hct 33.4, Na 136, Cl 110, BUN 24, Cr 0.61. Labs significant for RBC 4.25, Hg 12.7, Hct 37.9, PT 12.7, INR 1.2, K 3.4, BUN 26, glu 110, T. Bili 1.5, alk phos 153, Trop < 0.012, BNP 1750, alb 3.1, Lipase 38. UA neg LE or nitire. COVID, RSV, Flu neg. 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 Liver US shows metastasis within the liver, renal cysts and ascites. Brain CT neg for metastatic lesions. CT AP confirms large lesions within the liver along with 2 soft tissue lesions within the mesentery. He underwent paracentesis and liver biopsy on 01/06. Results are still pending with repeat ultrasound on 01/10 showed fluid to drain, LLE duplex negative for DVT.. We did have a very long conversation regarding his goals of care, he is interested in hospice, discussed with RN at bedside. Patient shared that he does not have any family members, his only friend is his DPOA who is older than him, discussed with case management, patient needs official POA documents signed, hospice consulted, biopsies pending. Patient is not interested in rehab placement at this time. Patient's CODE STATUS was discussed to DNR/DNI with RN witnessed this conversation. 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 Patient was notified on results. 01/14/2025 patient will be discharged to residential home with hospice per his wishes Patient seen and examined at bedside.[ Vital signs reviewed and stable. General: [nontoxic], [no distress], [chronically ill-appearing Derm: [warm], [dry] Head: [atraumatic], [normocephalic], [symmetric] Eyes: [EOMI], [no lid lag], [anicteric sclera] Mouth: [no lip lesion], [mucus membranes moist] Cardiovascular: [S1S2 reg], [murmur] Lungs: Bilateral breath sounds [no rhonchi, no rales] , [no accessory muscle use] Abdominal: Abdomen is distended, nontender Ext: [no gross muscle atrophy], [no edema], [no contractures] Neuro: [ CN II-XI grossly intact], [no focal neuro deficits] Psych: [Alert], [oriented], [appropriate affect] A total of 40minutes of time were spent preparing this complex discharge summary. Patient Condition at Discharge: Stable Plan - Discharge Summary Discharge Rx Participant: Yes New Discharge Prescriptions: Continue Vit C/E/Zn/Coppr/Lutein/Zeaxan [Preservision Areds 2 Softgel] 1 cap PO DAILY Glucosa Sellers 2Kcl/Chondroitin Sellers [Glucosamine-Chondroitin Cap] 1 cap PO DAILY Potassium Chloride ER [K-Dur 20] 20 meq PO DAILY Chlorthalidone [Hygroton] 12.5 mg PO DAILY Discharge Medication List Chlorthalidone [Hygroton] 12.5 mg PO DAILY 01/04/25 [History] Glucosa Sellers 2Kcl/Chondroitin Sellers [Glucosamine-Chondroitin Cap] 1 cap PO DAILY 01/04/25 [History] Potassium Chloride ER [K-Dur 20] 20 meq PO DAILY 01/04/25 [History] Vit C/E/Zn/Coppr/Lutein/Zeaxan [Preservision Areds 2 Softgel] 1 cap PO DAILY 01/04/25 [History] Activity/Diet/Wound Care/Special Instructions: Whit Samuels [address] [place] [address] F: [phone] P: [phone] Discharge Disposition: HOME WITH HOSPICE
== END 2025-01-14 11:27 | disposition hospice, home (50) | DRG 435 ==
LOC: EC 14:36 → 1SOBS 17:54 → OBSVTOIN 01-05 13:39 → 6NMEDSUR 01-07 14:03
PROVIDERS: ADMIT Family Medicine; ATTEND Family Medicine
PROC: 0W9G3ZZ Drainage of Peritoneal Cavity, Percutaneous Approach (ICD-10-PCS; principal; 2025-01-06)
PROC: 0FB13ZX Excision of Right Lobe Liver, Percutaneous Approach, Diagnostic (ICD-10-PCS; 2025-01-06)
DX: C22.9 Malignant neoplasm of liver, not specified as primary or secondary (principal); E43 Unspecified severe protein-calorie malnutrition; R62.7 Adult failure to thrive; R18.8 Other ascites; Z66 Do not resuscitate; R16.0 Hepatomegaly, not elsewhere classified; K76.89 Other specified diseases of liver; J44.9 Chronic obstructive pulmonary disease, unspecified; I71.40 Abdominal aortic aneurysm, without rupture, unspecified; D64.9 Anemia, unspecified; D3A.8 Other benign neuroendocrine tumors; Z68.26 Body mass index [BMI] 26.0-26.9, adult; F43.21 Adjustment disorder with depressed mood; M79.89 Other specified soft tissue disorders; I71.21 Aneurysm of the ascending aorta, without rupture; K59.00 Constipation, unspecified; N28.1 Cyst of kidney, acquired; R14.0 Abdominal distension (gaseous); R60.0 Localized edema; Z87.891 Personal history of nicotine dependence; Z87.442 Personal history of urinary calculi
CPT/HCPCS: 36415; 47000; 49083; 70450; 71046; 71275; 74177; 76705; 77012; 80048; 80053; 81001; 82105; 82945; 83690; 83735; 83880; 84157; 84484; 85025; 85027; 85610; 85730; 86704; 86706; 86803; 87070; 87075; 87205; 87340; 87636; 88108; 88305; 88307; 88341; 88342; 89050; 93005; 93306; 99285